=== PATIENT | male | born 1975 | race Caucasian/White ===

== ENCOUNTER 2018-06-21 14:46 | Inpatient (IN) | payer BC, OTHER ==
[~2018-06-21] VITALS: Ht 185.4 cm; Wt 110.7 kg
[~2018-06-21 14:46] MED LIST: SUCCINYLCHOLINE 200 MG/10 ML VIAL. ONE
[2018-06-21] MEDS ORDERED: LABETALOL 20 MG/4 ML DISP.SYRIN. IVP ONE (15:15)
[2018-06-21 15:18] LABS: BASO # 0.1 x10^3/uL (0.0-0.2); BASO % 0 % (0-3); EOS % 0 % (0-3); HEMATOCRIT 49.1 % (39.0-53.0); HEMOGLOBIN 16.8 g/dL (13.0-17.5); LYMPH # 1.2 x10^3/uL (1.0-4.8); LYMPH % 6 % (24-48); MEAN CORPUSCULAR HEMOGLOBIN 31 pg (25-35); MEAN CORPUSCULAR HGB CONC 34 g/dL (31-37); MEAN CORPUSCULAR VOLUME 90 fL (79-100); MONO # 1.2 x10^3/uL (0.0-1.1); MONO % 6 % (0-9); NEUT # 17.2 x10^3uL (1.8-7.7); NEUT % 87 % (31-73); PLATELET COUNT 249 x10^3/uL (140-400); RED BLOOD COUNT 5.43 x10^6/uL (4.30-5.70); RED CELL DISTRIBUTION WIDTH 13.8 % (11.5-14.5); WHITE BLOOD COUNT 19.7 x10^3/uL (4.0-11.0)
[2018-06-21 15:26] LABS: CALCIUM 9.6 mg/dL (8.5-10.1); CREATININE 1.2 mg/dL (0.7-1.3); GFR 65.5; POTASSIUM 3.4 mmol/L (3.5-5.1)
[2018-06-21 15:27] LABS: PROTHROMBIN TIME PATIENT 14.3 SEC (11.7-14.0)
[2018-06-21 15:32] LABS: ALBUMIN 4.7 g/dL (3.4-5.0); ALBUMIN/GLOBULIN RATIO 1.2 (1.0-1.7); MAGNESIUM 1.7 mg/dL (1.8-2.4); TOTAL BILIRUBIN 0.8 mg/dL (0.2-1.0); TOTAL PROTEIN 8.7 g/dL (6.4-8.2)
--- NOTE | 2018-06-21 15:53 | RAD ---
CT HEAD WO CONTRAST Indication: HEADACHE, HTN TODAY
PREVIOUS Exposure: One or more of the following individualized dose reduction techniques were utilized for this examination: 1. Automated exposure control 2. Adjustment of the mA and/or kV according to patient size 3. Use of iterative reconstruction technique. Comparison: None FINDINGS: No evidence of acute intracranial hemorrhage, mass effect, midline shift or abnormal extra-axial fluid collection. Ventricles and sulci are symmetric. Mobley-white matter distinction is intact. Partially visualized sinuses are clear. No acute skull abnormality. Orbits appear unremarkable. IMPRESSION: No evidence of acute intracranial hemorrhage or infarction. Electronically signed by: Bert Simms MD (06/21/2018 3:49 PM) [facility]
[2018-06-21 16:00] LABS: % BANDS 2 % (0-9); % LYMPHS 3 % (24-48); % MONOS 6 % (0-10); % SEGS 89 % (35-66)
[2018-06-21] MEDS ORDERED: METOPROLOL TARTRATE 5 MG/5 ML VIAL. IVP ONE (16:00)
[2018-06-21 16:11] LABS: PLT ESTIMATE ADEQUATE (ADEQUATE)
--- NOTE | 2018-06-21 16:14 | RAD ---
CHEST AP ONLY History: Short of breath Comparison: None. Heart size is not enlarged. No evidence of pneumothorax, pleural effusion or consolidating infiltrate. IMPRESSION: No acute infiltrate. Electronically signed by: Bert Simms MD (06/21/2018 4:11 PM) [facility]
[2018-06-21] MEDS ORDERED: MAGNESIUM SULFATE 2GM 50 ML IV ONE (16:30)
[2018-06-21] MEDS ORDERED: IV NORMAL SALINE 500ML BAG 500 ML IV ONE (16:30)
--- NOTE | 2018-06-21 16:56 | PHYS DOC ---
Past Medical History Past Medical History: No Pertinent History Past Surgical History: Other Additional Past Surgical Histo: VASECTOMY Additional Information: CHEWS DAILY Alcohol Use: Occasionally Drug Use: None Adult General Chief Complaint Chief Complaint: DIZZY/LIGHT HEADED HPI HPI Patient is a 43 year old male presented to the ER today with sudden onset of dizziness and blurry vision after drank something at work around 1pm. Patient later admitted of drinking methamphetamine. Patient denied any headache, no fever. He denied any chest pain, no shortness of air, no slurry speech, no focal weakness or numbness. Patient has no previous history of elevated blood pressure. Patient is currently not on any medication, no recent travel or operation. Review of Systems Review of Systems Constitutional: Denies fever or chills [] Eyes: Denies change in visual acuity, redness, or eye pain [] HENT: Denies nasal congestion or sore throat [] Respiratory: Denies cough or shortness of breath [] Cardiovascular: No additional information not addressed in HPI [] GI: Denies abdominal pain, nausea, vomiting, bloody stools or diarrhea [] : Denies dysuria or hematuria [] Musculoskeletal: Denies back pain or joint pain [] Integument: Denies rash or skin lesions [] Neurologic: Denies headache, focal weakness or sensory changes. Positive for blurry vision and dizziness. Endocrine: Denies polyuria or polydipsia [] All other systems were reviewed and found to be within normal limits, except as documented in this note. Current Medications Current Medications Current Medications Medications (Trade) Dose Ordered Sig/Facundo Start Time Stop Time Status Last Admin Dose Admin Acetaminophen (Tylenol Supp) 650 mg 1X ONCE 06/21/18 17:45 06/21/18 17:46 DC 06/21/18 17:57 650 MG Ceftriaxone Sodium (Rocephin) 2 gm 1X ONCE 06/21/18 17:30 06/21/18 17:31 DC 06/21/18 17:39 2 GM Etomidate (Amidate) 20 mg STK-MED ONCE 06/21/18 17:28 06/21/18 17:29 DC Labetalol HCl (Normodyne Iv Push) 20 mg 1X ONCE 06/21/18 15:15 06/21/18 15:18 DC 06/21/18 15:30 20 MG Lorazepam (Ativan) 2 mg 1X ONCE 06/21/18 17:15 06/21/18 17:16 DC Magnesium Sulfate 50 ml @ 25 mls/hr 1X ONCE 06/21/18 16:30 06/21/18 18:29 DC 06/21/18 16:41 25 MLS/HR Metoprolol Tartrate (Lopressor Vial) 5 mg 1X ONCE 06/21/18 16:00 06/21/18 16:01 DC 06/21/18 16:05 5 MG Midazolam HCl (Versed) 5 mg STK-MED ONCE 06/21/18 17:47 06/21/18 17:48 DC Ondansetron HCl (Zofran) 4 mg PRN Q8HRS PRN 06/21/18 17:45 06/22/18 17:44 Propofol 50 ml @ As Directed STK-MED ONCE 06/21/18 17:26 06/21/18 17:27 DC Propofol (Diprivan) 200 mg 1X ONCE 06/21/18 17:30 06/21/18 17:31 DC Sodium Chloride 1,000 ml @ 100 mls/hr Q10H 06/21/18 17:38 06/22/18 17:37 Succinylcholine Chloride (Anectine) 200 mg STK-MED ONCE 06/21/18 17:13 06/21/18 17:14 DC Vancomycin HCl (Vanco Per Pharmacy) 1 each PRN DAILY PRN 06/21/18 17:30 Ziprasidone (Geodon Im) 20 mg 1X ONCE 06/21/18 17:00 06/21/18 17:01 DC 06/21/18 17:03 20 MG Allergies Allergies Allergies Coded Allergies Type Severity Reaction Last Updated Verified Penicillins Allergy Intermediate 06/21/18 Yes diphenhydramine Allergy Intermediate 06/21/18 Yes Physical Exam Physical Exam Constitutional: Well developed, well nourished, no acute distress, non-toxic appearance. [] HENT: Normocephalic, atraumatic, bilateral external ears normal, oropharynx moist, no oral exudates, nose normal. [] Eyes: PERRLA, EOMI, conjunctiva normal, no discharge. [] Neck: Normal range of motion, no tenderness, supple, no stridor. [] Cardiovascular:Heart rate regular rhythm, no murmur [] Lungs & Thorax: Bilateral breath sounds clear to auscultation [] Abdomen: Bowel sounds normal, soft, no tenderness, no masses, no pulsatile masses. [] Skin: Warm, dry, no erythema, no rash. [] Back: No tenderness, no CVA tenderness. [] Extremities: No tenderness, no cyanosis, no clubbing, ROM intact, no edema. [] Neurologic: Alert and oriented X 3, normal motor function, normal sensory function, no focal deficits noted. Patient can sit up in bed without any problem. No focal neurologic deficit. NIHSS was scored as zero. Psychologic: Affect normal, judgement normal, mood normal. [] Current Patient Data Vital Signs Vital Signs Date Time Temp Pulse Resp B/P (MAP) Pulse Ox O2 Delivery O2 Flow Rate FiO2 06/21/18 17:45 162 16 93 06/21/18 17:20 Ventilator 06/21/18 17:00 106.0 106.0 06/21/18 16:05 173/93 Lab Values Laboratory Tests Test 06/21/18 15:09 06/21/18 16:30 06/21/18 17:22 White Blood Count 19.7 x10^3/uL (4.0-11.0) H Red Blood Count 5.43 x10^6/uL (4.30-5.70) Hemoglobin 16.8 g/dL (13.0-17.5) Hematocrit 49.1 % (39.0-53.0) Mean Corpuscular Volume 90 fL (79-100) Mean Corpuscular Hemoglobin 31 pg (25-35) Mean Corpuscular Hemoglobin Concent 34 g/dL (31-37) Red Cell Distribution Width 13.8 % (11.5-14.5) Platelet Count 249 x10^3/uL (140-400) Neutrophils (%) (Auto) 87 % (31-73) H Lymphocytes (%) (Auto) 6 % (24-48) L Monocytes (%) (Auto) 6 % (0-9) Eosinophils (%) (Auto) 0 % (0-3) Basophils (%) (Auto) 0 % (0-3) Neutrophils # (Auto) 17.2 x10^3uL (1.8-7.7) H Lymphocytes # (Auto) 1.2 x10^3/uL (1.0-4.8) Monocytes # (Auto) 1.2 x10^3/uL (0.0-1.1) H Eosinophils # (Auto) 0.0 x10^3/uL (0.0-0.7) Basophils # (Auto) 0.1 x10^3/uL (0.0-0.2) Segmented Neutrophils % 89 % (35-66) H Band Neutrophils % 2 % (0-9) Lymphocytes % 3 % (24-48) L Monocytes % 6 % (0-10) Platelet Estimate Adequate (ADEQUATE) Prothrombin Time 14.3 SEC (11.7-14.0) H Prothrombin Time INR 1.1 (0.8-1.1) PTT 27 SEC (24-38) Sodium Level 138 mmol/L (136-145) Potassium Level 3.4 mmol/L (3.5-5.1) L Chloride Level 99 mmol/L (98-107) Carbon Dioxide Level 24 mmol/L (21-32) Anion Gap 15 (6-14) H Blood Urea Nitrogen 11 mg/dL (8-26) Creatinine 1.2 mg/dL (0.7-1.3) Estimated GFR (Cockcroft-Gault) 65.5 BUN/Creatinine Ratio 9 (6-20) Glucose Level 185 mg/dL (70-99) H Calcium Level 9.6 mg/dL (8.5-10.1) Magnesium Level 1.7 mg/dL (1.8-2.4) L Total Bilirubin 0.8 mg/dL (0.2-1.0) Aspartate Amino Transferase (AST) 20 U/L (15-37) Alanine Aminotransferase (ALT) 49 U/L (16-63) Alkaline Phosphatase 83 U/L (46-116) Troponin I Quantitative 0.080 ng/mL (0.000-0.055) FX-[id number]-Type Natriuretic Peptide 460 pg/mL (0-124) H Total Protein 8.7 g/dL (6.4-8.2) H Albumin 4.7 g/dL (3.4-5.0) Albumin/Globulin Ratio 1.2 (1.0-1.7) Salicylates Level < 2.8 mg/dL (2.8-20.0) L Salicylate Last Dose Date Unk Salicylate Last Dose Time Unk Acetaminophen Level < 2 mcg/ml (10-30) L Acetaminophen Last Dose Date Unk Acetaminophen Last Dose Time Unk Ethyl Alcohol Level < 10 mg/dL (0-10) Lactic Acid Level 5.8 mmol/L (0.4-2.0) *H Urine Opiates Screen Neg (NEG) Urine Methadone Screen Neg (NEG) Urine Barbiturates Neg (NEG) Urine Phencyclidine Screen Neg (NEG) Urine Amphetamine/Methamphetamine Pos (NEG) Urine Benzodiazepines Screen Neg (NEG) Urine Cocaine Screen Neg (NEG) Urine Cannabinoids Screen Neg (NEG) Urine Ethyl Alcohol Neg (NEG) Laboratory Tests 06/21/18 15:09 Laboratory Tests 06/21/18 15:09 EKG EKG EKG WAS DONE AT 1458,RATE OF 121, SINUS TACHYCARDIA, NO STEMI. [] Radiology/Procedures Radiology/Procedures [][address] [address] IMAGING REPORT Signed PATIENT: BERT SORENSON ACCOUNT: [id number] : 1975 LOCATION: ER AGE: 43 SEX: M EXAM STATUS: REG ER ORD. PHYSICIAN: BRIAN POST DO REASON: SOA PROCEDURE: CHEST AP ONLY CHEST AP ONLY History: Short of breath Comparison: None. Heart size is not enlarged. No evidence of pneumothorax, pleural effusion or consolidating infiltrate. IMPRESSION: No acute infiltrate. Electronically signed by: Bert Simms MD (06/21/2018 4:11 PM) [facility] DICTATED and SIGNED BY: BERT SIMMS MD DATE: 06/21/[address] [address] IMAGING REPORT Signed PATIENT: BERT SORENSON ACCOUNT: [id number] : 1975 LOCATION: ER AGE: 43 SEX: M EXAM STATUS: REG ER ORD. PHYSICIAN: BRIAN POST DO REASON: headache, htn PROCEDURE: CT HEAD WO CONTRAST CT HEAD WO CONTRAST Indication: HEADACHE, HTN TODAY
PREVIOUS Exposure: One or more of the following individualized dose reduction techniques were utilized for this examination: 1. Automated exposure control 2. Adjustment of the mA and/or kV according to patient size 3. Use of iterative reconstruction technique. Comparison: None FINDINGS: No evidence of acute intracranial hemorrhage, mass effect, midline shift or abnormal extra-axial fluid collection. Ventricles and sulci are symmetric. Mobley-white matter distinction is intact. Partially visualized sinuses are clear. No acute skull abnormality. Orbits appear unremarkable. IMPRESSION: No evidence of acute intracranial hemorrhage or infarction. Electronically signed by: Bert Simms MD (06/21/2018 3:49 PM) [facility] DICTATED and SIGNED BY: BERT SIMMS MD DATE: 06/21/18 9227 Course & Med Decision Making Course & Med Decision Making Pertinent Labs and Imaging studies reviewed. (See chart for details) While in the room, patient became hallucinated, felt hot flush, he started twisting his extremities while he was still awake and talking. He was given several doses of ativan iv but continues to hallucinating, convulsing. He was moved to trauma base, patient never lost his consciousness, he attempted to pull off medical devices, not following command. He managed to bit his tongue. He was sweating, pale. A decision was made to intubate patient to protect his airway and stopping the convulsion. Patient was intubated by rapid sequence intubation. His lactate was high, associated with leukocytosis and confusion. He was given rocephin and vancomycin empirically to treat for infectious encephalitis. Patient was admitted to ICU. Dragon Disclaimer Dragon Disclaimer This electronic medical record was generated, in whole or in part, using a voice recognition dictation system. Departure Departure Impression: Primary Impression: Hypertension Additional Impressions: Encephalopathy acute Substance abuse Disposition: ADMITTED INPATIENT Admitting Physician: Krista Park Condition: STABLE Referrals: KEKE KHOURY MD (PCP) Intubation Procedure Intubation Procedure Intub Indication: Acute hallucination, combative, seizuring Consent: Unable to give consent due to emergent nature. Medications Used: see nursing note Procedure: The patient was placed in the appropriate position. Intubation was performed [CORD VISUALIZATION METHOD] [ET # 8] endotracheal tube, MAC 4 BLADE. [ET SECURE at 24 at lip]. Initial confirmation of placement included bilateral breath sounds, tube fogging, adequate chest rise, adequate pulse oximetry reading. A chest x-ray to verify correct placement of the tube showed appropriate tube position. The patient tolerated the procedure well. Complications: none. Problem Qualifiers BRIAN POST DO Jun 21, 2018 16:56
[2018-06-21] MEDS ORDERED: ZIPRASIDONE IM 20 MG VIAL. IM ONE (17:00)
[2018-06-21] MEDS ORDERED: SUCCINYLCHOLINE 200 MG/10 ML VIAL. ONE (17:13)
[2018-06-21] MEDS ORDERED: PROPOFOL 20 ML IV ONE (17:24)
[2018-06-21] MEDS ORDERED: PROPOFOL 50 ML IV ONE (17:26)
[2018-06-21] MEDS ORDERED: ETOMIDATE 20 MG/10 ML VIAL. IV ONE (17:28)
[2018-06-21] MEDS ORDERED: cefTRIAXone IV Push 1 GM VIAL. IVP ONE (17:30)
[2018-06-21] MEDS ORDERED: IV NORMAL SALINE 1000ML BAG 1,000 ML IV ONE ×2 (17:30)
[2018-06-21] MEDS ORDERED: VANCOMYCIN PER PHARMACY MC PRN (17:30)
[2018-06-21] MEDS ORDERED: PROPOFOL 10 MG/ML (20ML) VIAL. IV ONE (17:30)
[2018-06-21 17:34] LABS: BARBITURATES NEG (NEG); BENZODIAZEPINES NEG (NEG); CANNABINOIDS NEG (NEG); COCAINE NEG (NEG); METHADONE NEG (NEG); OPIATES NEG (NEG); PHENCYCLIDINE NEG (NEG)
[2018-06-21 17:39] LABS: ACETAMIN < 2 mcg/ml (10-30); ETHANOL < 10 mg/dL (0-10); SALIC < 2.8 mg/dL (2.8-20.0)
[2018-06-21 17:39] LABS: AMPHETAMINE/METHAMPHETAMINE POS (NEG)
[2018-06-21] MEDS ORDERED: ONDANSETRON PF 4 MG/2 ML VIAL. IV PRN (17:45)
[2018-06-21] MEDS ORDERED: ACETAMINOPHEN 650 MG SUPP.RECT. PR ONE (17:45)
[2018-06-21] MEDS ORDERED: MIDAZOLAM HCL/PF 5 MG/5 ML VIAL. ONE (17:47)
[2018-06-21] MEDS ORDERED: MIDAZOLAM 100mg/100ml NS BAG 100 ML IV ONE (18:00)
[2018-06-21] MEDS ORDERED: VANCOMYCIN 2 GM in IV NORMAL SALINE 500ML BAG 500 ML IV ONE (18:00)
[2018-06-21 18:04] LABS: BASE EXCESS ABG -6 mmol/L (-3-3); CORRECTED PCO2 ABG 51 mmHg; CORRECTED PH ABG 7.24; CORRECTED PO2 ABG 248 mmHg; HCO3 ABG 20 mmol/L (21-28); SAT O2 ABG 99 % (92-99)
[2018-06-21 18:05] LABS: FIO2 ABG 100; PCO2 ABG 51 mmHg (35-46); PO2 ABG 248 mmHg (75-108)
[2018-06-21] MEDS ORDERED: PROPOFOL 100 ML IV ONE (18:07)
[2018-06-21] MEDS ORDERED: PROPOFOL 10 MG/ML (100ML) VIAL. IV ONE (18:10)
[2018-06-21] MEDS ORDERED: ROCURONIUM 50 MG/5 ML VIAL. ONE (18:11)
[2018-06-21 19:00] VITALS: BP 116/71
--- NOTE | 2018-06-21 19:00 | NUR ---
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 unable to complete ancillary questions d/t pt being intubated/sedated and family has left for the night. temperature coming down smoothly with cooling blanket, down to 98.5 rectally at this time. pt moving frequently in bed, attempting to sit up so sedation increased to keep him comfortable and in sync with ventilator. OG inserted without difficulty and placed to LIS at this time. VSS, pt now resting in bed without issues. will continue to closely monitor.
[2018-06-21] MEDS: IV NORMAL SALINE 1000ML BAG 1,000 ML IV SCH (19:32)
--- NOTE | 2018-06-21 19:45 | PDOC1 ---
History and Physical Date of Admission Date of Admission DATE: 06/21/18 TIME: 19:41 Identification/Chief Complaint Chief Complaint shaky, confused Source Source: Caregiver, Chart review History of Present Illness History of Present Illness Mr. Nelson, is a 43 year old male presented to the ER today with sudden onset of dizziness and blurry vision after drank something at work around 1pm. Patient later admitted of drinking methamphetamine. Patient denied any headache , no fever. He denied any chest pain, no shortness of air, no slurry speech, no focal weakness or numbness. Patient has no previous history of elevated blood pressure. Patient is currently not on any medication, no recent travel or operation. intubated in the ER when he became confused, combative and bit his tongue Past Medical History Cardiovascular: No pertinent hx Pulmonary: No pertinent hx GI: No pertinent hx Family History Family History: Other Social History Smoke: # pack years (chew) ALCOHOL: rare Drugs: None Current Problem List Problem List Problems Medical Problems: (1) Encephalopathy acute Status: Acute (2) Hypertension Status: Acute (3) Substance abuse Status: Acute Current Medications Current Medications Current Medications Labetalol HCl (Normodyne Iv Push) 20 mg 1X ONCE IVP Last administered on at 15:30; Start 06/21/18 at 15:15; Stop 06/21/18 at 15:18; Status DC Metoprolol Tartrate (Lopressor Vial) 5 mg 1X ONCE IVP Last administered on at 16:05; Start 06/21/18 at 16:00; Stop 06/21/18 at 16:01; Status DC Lorazepam (Ativan) 1 mg 1X ONCE IV Last administered on 06/21/18at 16:04; Start 06/21/18 at 16:00; Stop 06/21/18 at 16:01; Status DC Sodium Chloride 500 ml @ 500 mls/hr 1X ONCE IV Last administered on at 17:03; Start 06/21/18 at 16:30; Stop 06/21/18 at 17:29; Status DC Magnesium Sulfate 50 ml @ 25 mls/hr 1X ONCE IV Last administered on 06/21/18at 16:41; Start 06/21/18 at 16:30; Stop 06/21/18 at 18:29; Status DC Lorazepam (Ativan) 2 mg 1X ONCE IV Last administered on 06/21/18at 16:41; Start 06/21/18 at 16:30; Stop 06/21/18 at 16:31; Status DC Ziprasidone (Geodon Im) 20 mg 1X ONCE IM Last administered on 06/21/18at 17:03 ; Start 06/21/18 at 17:00; Stop 06/21/18 at 17:01; Status DC Lorazepam (Ativan) 2 mg 1X ONCE IV ; Start 06/21/18 at 17:15; Stop 06/21/18 at 17:16; Status DC Succinylcholine Chloride (Anectine) 200 mg STK-MED ONCE .ROUTE ; Start 06/21/18 at 17:13; Stop 06/21/18 at 17:14; Status DC Propofol (Diprivan) 200 mg 1X ONCE IV ; Start 06/21/18 at 17:30; Stop 06/21/18 at 17:31; Status DC Ceftriaxone Sodium (Rocephin) 2 gm 1X ONCE IVP Last administered on 06/21/18at 17:39; Start 06/21/18 at 17:30; Stop 06/21/18 at 17:31; Status DC Sodium Chloride 1,000 ml @ 1,000 mls/hr 1X ONCE IV Last administered on at 17:32; Start 06/21/18 at 17:30; Stop 06/21/18 at 18:29; Status DC Propofol 20 ml @ As Directed STK-MED ONCE IV ; Start 06/21/18 at 17:24; Stop at 17:25; Status DC Propofol 50 ml @ As Directed STK-MED ONCE IV ; Start 06/21/18 at 17:26; Stop at 17:27; Status DC Etomidate (Amidate) 20 mg STK-MED ONCE IV ; Start 06/21/18 at 17:28; Stop at 17:29; Status DC Sodium Chloride 1,000 ml @ 1,000 mls/hr 1X ONCE IV Last administered on at 19:31; Start 06/21/18 at 17:30; Stop 06/21/18 at 18:29; Status DC Vancomycin HCl (Vanco Per Pharmacy) 1 each PRN DAILY PRN MC SEE COMMENTS; Start 06/21/18 at 17:30 Vancomycin HCl 2 gm/Sodium Chloride 500 ml @ 250 mls/hr 1X ONCE IV Last administered on 06/21/18at 19:31; Start 06/21/18 at 18:00; Stop 06/21/18 at 19:59 Ondansetron HCl (Zofran) 4 mg PRN Q8HRS PRN IV NAUSEA/VOMITING; Start 06/21/18 at 17:45; Stop 06/22/18 at 17:44 Sodium Chloride 1,000 ml @ 100 mls/hr Q10H IV Last administered on 06/21/18at 19:32; Start 06/21/18 at 17:38; Stop 06/22/18 at 17:37 Acetaminophen (Tylenol Supp) 650 mg 1X ONCE DC Last administered on 06/21/18at 17:57; Start 06/21/18 at 17:45; Stop 06/21/18 at 17:46; Status DC Midazolam HCl 100 ml @ 1 mls/hr 1X ONCE IV Last administered on 06/21/18at 17: 57; Start 06/21/18 at 18:00; Stop 06/25/18 at 21:59 Midazolam HCl (Versed) 5 mg STK-MED ONCE .ROUTE ; Start 06/21/18 at 17:47; Stop 06/21/18 at 17:48; Status DC Propofol 100 ml @ As Directed STK-MED ONCE IV ; Start 06/21/18 at 18:07; Stop 06/21/18 at 18:08; Status DC Rocuronium [place] (Zemuron) 50 mg STK-MED ONCE .ROUTE ; Start 06/21/18 at 18:11 ; Stop 06/21/18 at 18:12; Status DC Allergies Allergies: Coded Allergies: Penicillins (Verified Allergy, Intermediate, 06/21/18) diphenhydramine (Verified Allergy, Intermediate, 06/21/18) ROS Review of System unable, intubated, had felt well until this Afternoon per family Physical Exam General: mild distress (sedated) HEENT: Atraumatic, PERRLA Lungs: Clear to auscultation, Other (vent ) Heart: S1S2, no murmurs Extremities: No cyanosis, No edema, Normal pulses Skin: No rashes, No significant lesion, Other (arm tattoos) Neuro: Normal tone Psych/Mental Status: Other (sedasted) Vitals Vitals Vital Signs Date Time Temp Pulse Resp B/P (MAP) Pulse Ox O2 Delivery O2 Flow Rate FiO2 06/21/18 18:00 154 16 100 06/21/18 17:20 Ventilator 06/21/18 17:00 106.0 106.0 06/21/18 16:05 173/93 Labs Labs Laboratory Tests Test 06/21/18 15:09 06/21/18 16:30 06/21/18 17:22 06/21/18 17:55 White Blood Count 19.7 x10^3/uL (4.0-11.0) Red Blood Count 5.43 x10^6/uL (4.30-5.70) Hemoglobin 16.8 g/dL (13.0-17.5) Hematocrit 49.1 % (39.0-53.0) Mean Corpuscular Volume 90 fL (79-100) Mean Corpuscular Hemoglobin 31 pg (25-35) Mean Corpuscular Hemoglobin Concent 34 g/dL (31-37) Red Cell Distribution Width 13.8 % (11.5-14.5) Platelet Count 249 x10^3/uL (140-400) Neutrophils (%) (Auto) 87 % (31-73) Lymphocytes (%) (Auto) 6 % (24-48) Monocytes (%) (Auto) 6 % (0-9) Eosinophils (%) (Auto) 0 % (0-3) Basophils (%) (Auto) 0 % (0-3) Neutrophils # (Auto) 17.2 x10^3uL (1.8-7.7) Lymphocytes # (Auto) 1.2 x10^3/uL (1.0-4.8) Monocytes # (Auto) 1.2 x10^3/uL (0.0-1.1) Eosinophils # (Auto) 0.0 x10^3/uL (0.0-0.7) Basophils # (Auto) 0.1 x10^3/uL (0.0-0.2) Segmented Neutrophils % 89 % (35-66) Band Neutrophils % 2 % (0-9) Lymphocytes % 3 % (24-48) Monocytes % 6 % (0-10) Platelet Estimate Adequate (ADEQUATE) Prothrombin Time 14.3 SEC (11.7-14.0) Prothromb Time International Ratio 1.1 (0.8-1.1) Activated Partial Thromboplast Time 27 SEC (24-38) Sodium Level 138 mmol/L (136-145) Potassium Level 3.4 mmol/L (3.5-5.1) Chloride Level 99 mmol/L (98-107) Carbon Dioxide Level 24 mmol/L (21-32) Anion Gap 15 (6-14) Blood Urea Nitrogen 11 mg/dL (8-26) Creatinine 1.2 mg/dL (0.7-1.3) Estimated GFR (Cockcroft-Gault) 65.5 BUN/Creatinine Ratio 9 (6-20) Glucose Level 185 mg/dL (70-99) Calcium Level 9.6 mg/dL (8.5-10.1) Magnesium Level 1.7 mg/dL (1.8-2.4) Total Bilirubin 0.8 mg/dL (0.2-1.0) Aspartate Amino Transf (AST/SGOT) 20 U/L (15-37) Alanine Aminotransferase (ALT/SGPT) 49 U/L (16-63) Alkaline Phosphatase 83 U/L (46-116) Troponin I Quantitative 0.080 ng/mL (0.000-0.055) SQ-Rnp-U-Type Natriuretic Peptide 460 pg/mL (0-124) Total Protein 8.7 g/dL (6.4-8.2) Albumin 4.7 g/dL (3.4-5.0) Albumin/Globulin Ratio 1.2 (1.0-1.7) Salicylates Level < 2.8 mg/dL (2.8-20.0) Salicylate Last Dose Date Unk Salicylate Last Dose Time Unk Acetaminophen Level < 2 mcg/ml (10-30) Acetaminophen Last Dose Date Unk Acetaminophen Last Dose Time Unk Ethyl Alcohol Level < 10 mg/dL (0-10) Lactic Acid Level 5.8 mmol/L (0.4-2.0) Urine Opiates Screen Neg (NEG) Urine Methadone Screen Neg (NEG) Urine Barbiturates Neg (NEG) Urine Phencyclidine Screen Neg (NEG) Urine Amphetamine/Methamphetamine Pos (NEG) Urine Benzodiazepines Screen Neg (NEG) Urine Cocaine Screen Neg (NEG) Urine Cannabinoids Screen Neg (NEG) Urine Ethyl Alcohol Neg (NEG) O2 Saturation 99 % (92-99) Arterial Blood pH 7.24 (7.35-7.45) Arterial Blood pH (Temp corrected) 7.24 Arterial Blood pCO2 at Patient Temp 51 mmHg (35-46) Arterial Blood pCO2 (Temp correct) 51 mmHg Arterial Blood pO2 at Patient Temp 248 mmHg (75-108) Arterial Blood pO2 (Temp corrected) 248 mmHg Arterial Blood HCO3 20 mmol/L (21-28) Arterial Blood Base Excess -6 mmol/L (-3-3) FiO2 100 Laboratory Tests Test 06/21/18 15:09 06/21/18 16:30 06/21/18 17:22 06/21/18 17:55 White Blood Count 19.7 x10^3/uL (4.0-11.0) Red Blood Count 5.43 x10^6/uL (4.30-5.70) Hemoglobin 16.8 g/dL (13.0-17.5) Hematocrit 49.1 % (39.0-53.0) Mean Corpuscular Volume 90 fL (79-100) Mean Corpuscular Hemoglobin 31 pg (25-35) Mean Corpuscular Hemoglobin Concent 34 g/dL (31-37) Red Cell Distribution Width 13.8 % (11.5-14.5) Platelet Count 249 x10^3/uL (140-400) Neutrophils (%) (Auto) 87 % (31-73) Lymphocytes (%) (Auto) 6 % (24-48) Monocytes (%) (Auto) 6 % (0-9) Eosinophils (%) (Auto) 0 % (0-3) Basophils (%) (Auto) 0 % (0-3) Neutrophils # (Auto) 17.2 x10^3uL (1.8-7.7) Lymphocytes # (Auto) 1.2 x10^3/uL (1.0-4.8) Monocytes # (Auto) 1.2 x10^3/uL (0.0-1.1) Eosinophils # (Auto) 0.0 x10^3/uL (0.0-0.7) Basophils # (Auto) 0.1 x10^3/uL (0.0-0.2) Segmented Neutrophils % 89 % (35-66) Band Neutrophils % 2 % (0-9) Lymphocytes % 3 % (24-48) Monocytes % 6 % (0-10) Platelet Estimate Adequate (ADEQUATE) Prothrombin Time 14.3 SEC (11.7-14.0) Prothromb Time International Ratio 1.1 (0.8-1.1) Activated Partial Thromboplast Time 27 SEC (24-38) Sodium Level 138 mmol/L (136-145) Potassium Level 3.4 mmol/L (3.5-5.1) Chloride Level 99 mmol/L (98-107) Carbon Dioxide Level 24 mmol/L (21-32) Anion Gap 15 (6-14) Blood Urea Nitrogen 11 mg/dL (8-26) Creatinine 1.2 mg/dL (0.7-1.3) Estimated GFR (Cockcroft-Gault) 65.5 BUN/Creatinine Ratio 9 (6-20) Glucose Level 185 mg/dL (70-99) Calcium Level 9.6 mg/dL (8.5-10.1) Magnesium Level 1.7 mg/dL (1.8-2.4) Total Bilirubin 0.8 mg/dL (0.2-1.0) Aspartate Amino Transf (AST/SGOT) 20 U/L (15-37) Alanine Aminotransferase (ALT/SGPT) 49 U/L (16-63) Alkaline Phosphatase 83 U/L (46-116) Troponin I Quantitative 0.080 ng/mL (0.000-0.055) YQ-[id number]-T-Type Natriuretic Peptide 460 pg/mL (0-124) Total Protein 8.7 g/dL (6.4-8.2) Albumin 4.7 g/dL (3.4-5.0) Albumin/Globulin Ratio 1.2 (1.0-1.7) Salicylates Level < 2.8 mg/dL (2.8-20.0) Salicylate Last Dose Date Unk Salicylate Last Dose Time Unk Acetaminophen Level < 2 mcg/ml (10-30) Acetaminophen Last Dose Date Unk Acetaminophen Last Dose Time Unk Ethyl Alcohol Level < 10 mg/dL (0-10) Lactic Acid Level 5.8 mmol/L (0.4-2.0) Urine Opiates Screen Neg (NEG) Urine Methadone Screen Neg (NEG) Urine Barbiturates Neg (NEG) Urine Phencyclidine Screen Neg (NEG) Urine Amphetamine/Methamphetamine Pos (NEG) Urine Benzodiazepines Screen Neg (NEG) Urine Cocaine Screen Neg (NEG) Urine Cannabinoids Screen Neg (NEG) Urine Ethyl Alcohol Neg (NEG) O2 Saturation 99 % (92-99) Arterial Blood pH 7.24 (7.35-7.45) Arterial Blood pH (Temp corrected) 7.24 Arterial Blood pCO2 at Patient Temp 51 mmHg (35-46) Arterial Blood pCO2 (Temp correct) 51 mmHg Arterial Blood pO2 at Patient Temp 248 mmHg (75-108) Arterial Blood pO2 (Temp corrected) 248 mmHg Arterial Blood HCO3 20 mmol/L (21-28) Arterial Blood Base Excess -6 mmol/L (-3-3) FiO2 100 VTE Prophylaxis Ordered VTE Prophylaxis Devices: No VTE Pharmacological Prophylaxi: Yes Assessment/Plan Assessment/Plan acute methamphetamine toxicity, overdose hyperthermia accelerated hypertension tachycardia, SIRS from [facility] ICU admit, intubate, sedate, propofol, SUNNI HERRERA MD Jun 21, 2018 19:44
[2018-06-21 20:00] VITALS: BP 114/73
[2018-06-21 20:02] LABS: BASE EXCESS ABG -6 mmol/L (-3-3); HCO3 ABG 19 mmol/L (21-28); PCO2 ABG 37 mmHg (35-46); PO2 ABG 151 mmHg (75-108); SAT O2 ABG 99 % (92-99)
[2018-06-21 20:23] LABS: FIO2 ABG 80
--- NOTE | 2018-06-21 20:30 | RAD ---
Single view chest 06/21/2017 CLINICAL INDICATION: Postintubation. COMPARISON: Chest 06/21/2017 FINDINGS: Placement of endotracheal tube well above the level the dayron. Scattered areas of mild atelectasis in both lungs. No pleural effusion, pneumothorax or focal consolidation. Moderate gaseous distention is partially visualized. IMPRESSION: 1. Endotracheal tube, as detailed. 2. Moderate gaseous distention. Clinical correlation recommended. Electronically signed by: Edson Hicks MD (06/21/2018 8:28 PM) [facility]
--- NOTE | 2018-06-21 20:36 | NUR ---
Pharmacy Vancomycin Dosing Note S:Consulted to monitor and dose vancomycin started 06/21/18. O:ABY SORENSON is a 43 year old M with ENCEPHALOPATHY, FEVER, LEUKOCYTOSIS . Height: 6 feet, 1 inches Weight: 113.4 kg [place] Body Weight: 79.90 Adjusted Body Weight: 93.30 Dosing Weight: Actual Other Antibiotics: rocephin x1 LABS: Last BUN: 11 Last Creatinine: 1.2 Creatinine Clearance: 106 mL/min Last WBC: 19.7 Last Procalcitonin: Tmax (past 24 hours): 106 Microbiology: - Last dose given 06/21/18 at 1931 Vancomycin Dosing: Loading Dose: 2000 mg x1 Dosing Weight: Actual Target Trough: 15-20 A: Based on: weight and renal function P: 1. Begin Vancomycin 1750 mg IV q12h 2. Follow up Trough level on 06/23/18 at 0730 3. Pharmacy will continue to monitor, follow and adjust therapy as needed. Ruth Carias Micah, 06/21/18 [id number]
[2018-06-21 21:00] VITALS: BP 112/73
[2018-06-21] MEDS ORDERED: MIDAZOLAM 100mg/100ml NS BAG 100 ML IV PRN (21:00)
[2018-06-21] MEDS: ENOXAPARIN 40 MG/0.4 ML SYRINGE. SQ SCH (21:05)
[2018-06-21 22:00] VITALS: BP 109/73
[2018-06-21] MEDS: PROPOFOL 100 ML IV PRN (22:45)
[2018-06-21 23:00] VITALS: BP 113/80
[2018-06-22] VITALS (18 sets, daily range): BP systolic 59–159; BP diastolic 71–90
[2018-06-22] MEDS: IV NORMAL SALINE 1000ML BAG 1,000 ML IV SCH ×2 (03:03→13:38)
[2018-06-22] MEDS: PROPOFOL 100 ML IV PRN (03:04)
--- NOTE | 2018-06-22 07:15 | EKG ---
[facility] [address] [place] [address] Test Date: 2018-06-21 Test Time: 14:58:08 Pat Name: ABY SORENSON Department: Room: 110 1 Gender: M Driver/Sales Workers: JUSTUS : 1975 Requested By: BRIAN POST Order Number: [id number] Reading MD: Margarito Davenport Measurements Intervals [place] Rate: 121 P: -81 CO: 148 QRS: 53 QRSD: 100 T: 26 QT: 304 QTc: 434 Interpretive Statements SINUS TACHYCARDIA Electronically Signed On 06-30-2018 10:40:35 [employer]SC[employer]IST by Margarito Davenport
[2018-06-22] MEDS ORDERED: VANCOMYCIN 1.75 GM in IV NORMAL SALINE 500ML BAG 500 ML IV SCH (08:00)
[2018-06-22 08:50] LABS: HEMATOCRIT 45.6 % (39.0-53.0); HEMOGLOBIN 15.4 g/dL (13.0-17.5); RED BLOOD COUNT 5.04 x10^6/uL (4.30-5.70); RED CELL DISTRIBUTION WIDTH 13.8 % (11.5-14.5); WHITE BLOOD COUNT 12.2 x10^3/uL (4.0-11.0)
[2018-06-22 08:59] LABS: BASE EXCESS ABG -4 mmol/L (-3-3); HCO3 ABG 20 mmol/L (21-28); PCO2 ABG 34 mmHg (35-46); PO2 ABG 98 mmHg (75-108); SAT O2 ABG 97 % (92-99)
[2018-06-22 09:49] LABS: BASE EXCESS ABG -4 mmol/L (-3-3); HCO3 ABG 20 mmol/L (21-28); PCO2 ABG 32 mmHg (35-46); PO2 ABG 103 mmHg (75-108); SAT O2 ABG 98 % (92-99)
[2018-06-22 09:50] LABS: FIO2 ABG 40
[2018-06-22 09:52] LABS: FIO2 ABG 40
[2018-06-22 09:58] LABS: CALCIUM 8.8 mg/dL (8.5-10.1); CREATININE 1.2 mg/dL (0.7-1.3); GFR 65.5; MAGNESIUM 2.5 mg/dL (1.8-2.4); POTASSIUM 3.6 mmol/L (3.5-5.1)
--- NOTE | 2018-06-22 11:21 | RAD ---
EXAM: Chest, single view. HISTORY: Respiratory failure. COMPARISON: 06/21/2018 FINDINGS: A frontal view of the chest is obtained. There is an endotracheal tube within the mid trachea. There is a nasogastric tube within the stomach. There is stable left retrograde opacity. There is no significant pleural effusion or pneumothorax. The heart is normal in size. IMPRESSION: 1. Stable left lower lobe atelectasis or infiltrate. 2. Endotracheal tube and nasogastric tube in expected position. Electronically signed by: Fatmata Diggs MD (06/22/2018 11:18 AM) [place] [id number]
--- NOTE | 2018-06-22 11:34 | CONS ---
DATE OF CONSULTATION: PULMONARY CONSULTATION ATTENDING PHYSICIAN: Dr. Park. REASON FOR CONSULTATION: Respiratory failure and drug intoxication. HISTORY OF PRESENT ILLNESS: The patient is a 43-year-old male who was brought into the Emergency Room with sudden onset of dizziness and blurry vision after he reportedly had meth mixed with Gatorade. The patient had no chest pain, no shortness of breath, no slurring of speech, no focal weakness. He was noted to have a fever of 106 on arrival and he has been afebrile since last night. His chest x-ray did not reveal any definite consolidation. He is now currently awake, following commands on a CPAP trial. His ABGs were reviewed, initial was 7.24 pH, pCO2 of 51 and a pO2 of 214 on 100% FIO2, and latest one on the CPAP trial is a pH of 7.38, pCO2 of 34 and pO2 of 98. I have spoken to the patient's who states that he has never done meth before. He does chew tobacco. His blood pressure was also high with systolic of 212 and a diastolic 111 on admission. PAST MEDICAL HISTORY: No chronic medical illnesses. PAST SURGICAL HISTORY: No recent surgeries. SOCIAL HISTORY: Recent meth intake and chew tobacco. Rare alcohol. ALLERGIES: PENICILLIN, DIPHENHYDRAMINE. MEDICATIONS: All reviewed as listed in the MRAD including vancomycin and Rocephin. REVIEW OF SYSTEMS: Unable to obtain as he is on the ventilator. PHYSICAL EXAMINATION: VITAL SIGNS: His blood pressure is more stable, is 131/80, afebrile, pulse ox 98%. HEENT: Sclerae nonicteric. NECK: Supple. LUNGS: Clear. CARDIOVASCULAR: Regular rate and rhythm. ABDOMEN: Soft. EXTREMITIES: With no pitting edema. LABORATORY AND DIAGNOSTIC DATA: Labs are reviewed. White cell count 12.2, hemoglobin 15.4 and platelets are 181. BUN and creatinine 11 and 1.2. Lactic acid was 5.8, now 1.5. IMPRESSION: 1. Acute hypercapnic respiratory failure secondary to acute intoxication of meth/toxic encephalopathy. 2. Acute toxic encephalopathy with abnormal behavior related to meth overdose. 3. Hypertensive urgency related to meth overdose. 4. Hyperthermia, likely related to meth. No definite infection on the chest x-ray. Fever is now resolved. 5. Metabolic and respiratory acidosis, resolved. RECOMMENDATIONS: 1. The patient is clinically doing well. He is awake following commands on a CPAP trial. ABGs are adequate. We will proceed with extubation. 2. Lovenox for DVT prophylaxis. 3. P.r.n. bronchodilators. 4. Antibiotics can be discontinued and follow ID recommendations. 5. Discussed with family. Discussed with RT and RN. Critical care time 33 minutes. JOANNA LEWIS MD DR: ARVIND/nicho JOB#: [id number] / [id number] WILBERT
--- NOTE | 2018-06-22 14:07 | PDOC2 ---
NEUROLOGY CONSULT Date of Admission Date of Admission DATE: 06/22/18 TIME: 13:49 Reason for Consult Reason for Consult: IMPRESSION: Hypertensive emergency, BP 224/128 mmHg. Hypertensive encephalopathy. Toxic encephalopathy (amphetamine).. Respiratory failure. Pulmonary infiltrate? Blurred vision. Dizziness. Lactic acidosis. Leukocytosis. HTN. Amphetamine positive. Obesity. RECOMMENDATIONS/PLAN: BP control. HCT showed no ICH and SAH. Lab: see orders. Treat medical diseases. Discussed with his and bedside in ICU on 06/22/18. HISTORY OF THE PRESENT ILLNESS: 43-y-old male patient with Hx of HTN and obesity had episodes of accelerated BP in the past at young age. He has not had treatment for HTN for many years, and he last checked his BP was about 2-3 years ago. He had some drinking with methamphetamine in it on 06/21/18 and he then suddenly had mental status changes, blurred vision, dizziness, light headiness to be brought to the ER of [facility]. His BP was high. Past Medical History Cardiovascular: HTN. Pulmonary: No pertinent hx GI: No pertinent hx Family History Non contributory. PAST SURGERY HISTORY: No major surgery recently. ALLERGY: Unknown MEDICATIONS: Refer to MAR SOCIAL HISTORY: Lives with his at home. Smoke: 1-2 pack years (chew)Lives in assisted. He drinks occasionally. Amphetamine positive this time. REVIEW OF SYSTEMS: Constitutional:Obesity. Head: No recent traumatic brain or head injury. Skin: No edema, or rash. Ear: No infection. Eyes: No vision loss or color blindness. Nose: No bleeding or purulent discharges. Hearing: No hearing decrease. Neck: No injury. Cardiac: HTN. Pulmonary: No COPD. GI: No GI ulcer, GI bleeding. Urinary/genital: No dysuria, incontinence, urinary retention. Endocrinologic: Obesity. Skeletomuscular: No muscular atrophy, deformity. Neurological: see HP. Psychiatric: Tobacco use. Otherwise, not [id number] review of systems. PHYSICAL EXAMINATION: General appearance is in subacute distress. HEENT: Normocephalic and nontraumatic. Eyes, nose, ears, and throat are unremarkable. Neck is supple. No lymphadenopathy. No crepitus. Cardiovascular: S1, S2, regular rate and rhythm. Pulmonary: Clear to auscultation bilaterally. Abdomen: Bowel sounds are positive. Abdomen is soft, nontender, and nondistended. Extremities: No rash, lesions, or edema. No restriction of range of motion NEUROLOGICAL EXAMINATION: Awake. On room air now. Oriented to time, place and person. PERRL. EOMI. CN: no focal findings. Muscle tone: within normal. Muscle strength: 5 DTR: 2+ Plantar reflex: Flexor response bilaterally Gait: not examined in bed. Sensory exam: no abnormal findings. No cerebellar signs elicited. F-T-N test fine. Current Medications Current Medications Current Medications Labetalol HCl (Normodyne Iv Push) 20 mg 1X ONCE IVP Last administered on 15:30; Start 06/21/18 at 15:15; Stop 06/21/18 at 15:18; Status DC Metoprolol Tartrate (Lopressor Vial) 5 mg 1X ONCE IVP Last administered on 16:05; Start 06/21/18 at 16:00; Stop 06/21/18 at 16:01; Status DC Lorazepam (Ativan) 1 mg 1X ONCE IV Last administered on 06/21/18 16:04; Start 06/21/18 at 16:00; Stop 06/21/18 at 16:01; Status DC Sodium Chloride 500 ml @ 500 mls/hr 1X ONCE IV Last administered on 17:03; Start 06/21/18 at 16:30; Stop 06/21/18 at 17:29; Status DC Magnesium Sulfate 50 ml @ 25 mls/hr 1X ONCE IV Last administered on 06/21/18 16:41; Start 06/21/18 at 16:30; Stop 06/21/18 at 18:29; Status DC Lorazepam (Ativan) 2 mg 1X ONCE IV Last administered on 06/21/18 16:41; Start 06/21/18 at 16:30; Stop 06/21/18 at 16:31; Status DC Ziprasidone (Geodon Im) 20 mg 1X ONCE IM Last administered on 06/21/18 17:03 ; Start 06/21/18 at 17:00; Stop 06/21/18 at 17:01; Status DC Lorazepam (Ativan) 2 mg 1X ONCE IV ; Start 06/21/18 at 17:15; Stop 06/21/18 at 17:16; Status DC Succinylcholine Chloride (Anectine) 200 mg STK-MED ONCE .ROUTE ; Start 06/21/18 at 17:13; Stop 06/21/18 at 17:14; Status DC Propofol (Diprivan) 200 mg 1X ONCE IV ; Start 06/21/18 at 17:30; Stop 06/21/18 at 17:31; Status DC Ceftriaxone Sodium (Rocephin) 2 gm 1X ONCE IVP Last administered on 06/21/18at 17:39; Start 06/21/18 at 17:30; Stop 06/21/18 at 17:31; Status DC Sodium Chloride 1,000 ml @ 1,000 mls/hr 1X ONCE IV Last administered on at 17:32; Start 06/21/18 at 17:30; Stop 06/21/18 at 18:29; Status DC Propofol 20 ml @ As Directed STK-MED ONCE IV ; Start 06/21/18 at 17:24; Stop at 17:25; Status DC Propofol 50 ml @ As Directed STK-MED ONCE IV ; Start 06/21/18 at 17:26; Stop at 17:27; Status DC Etomidate (Amidate) 20 mg STK-MED ONCE IV ; Start 06/21/18 at 17:28; Stop at 17:29; Status DC Sodium Chloride 1,000 ml @ 1,000 mls/hr 1X ONCE IV Last administered on at 19:31; Start 06/21/18 at 17:30; Stop 06/21/18 at 18:29; Status DC Vancomycin HCl (Vanco Per Pharmacy) 1 each PRN DAILY PRN MC SEE COMMENTS Last administered on 06/21/18at 20:33; Start 06/21/18 at 17:30 Vancomycin HCl 2 gm/Sodium Chloride 500 ml @ 250 mls/hr 1X ONCE IV Last administered on 06/21/18at 19:31; Start 06/21/18 at 18:00; Stop 06/21/18 at 19:59 ; Status DC Ondansetron HCl (Zofran) 4 mg PRN Q8HRS PRN IV NAUSEA/VOMITING; Start 06/21/18 at 17:45; Stop 06/22/18 at 17:44 Sodium Chloride 1,000 ml @ 100 mls/hr Q10H IV Last administered on 06/22/18 03:03; Start 06/21/18 at 17:38; Stop 06/22/18 at 17:37 Acetaminophen (Tylenol Supp) 650 mg 1X ONCE MI Last administered on 06/21/18at 17:57; Start 06/21/18 at 17:45; Stop 06/21/18 at 17:46; Status DC Midazolam HCl 100 ml @ 1 mls/hr 1X ONCE IV Last administered on 06/21/18at 17: 57; Start 06/21/18 at 18:00; Stop 06/25/18 at 21:59 Midazolam HCl (Versed) 5 mg STK-MED ONCE .ROUTE ; Start 06/21/18 at 17:47; Stop 06/21/18 at 17:48; Status DC Propofol 100 ml @ As Directed STK-MED ONCE IV ; Start 06/21/18 at 18:07; Stop 06/21/18 at 18:08; Status DC Rocuronium [place] (Zemuron) 50 mg STK-MED ONCE .ROUTE ; Start 06/21/18 at 18:11 ; Stop 06/21/18 at 18:12; Status DC Enoxaparin Sodium (Lovenox Per Pharmacy Prophylaxis Dosing) 1 each PRN DAILY PRN MC SEE COMMENTS; Start 06/21/18 at 19:45 Enoxaparin Sodium (Lovenox 40mg Syringe) 40 mg QHS SQ Last administered on 06/21at 21:05; Start 06/21/18 at 21:00 Vancomycin HCl 1.75 gm/Sodium Chloride 500 ml @ 250 mls/hr Q12H IV Last administered on 06/22/18at 09:39; Start 06/22/18 at 08:00 Vancomycin HCl (Vancomycin Trough Level) 1 each 1X ONCE MC ; Start 06/23/18 at 07:30; Stop 06/23/18 at 07:31 Midazolam HCl 100 ml @ 5 mls/hr CONT PRN IV SEE I/O RECORD; Start 06/21/18 at 21:00 Propofol 100 ml @ 0 mls/hr CONT PRN IV SEE I/O RECORD Last administered on 06/22at 03:04; Start 06/21/18 at 21:00 Propofol (Diprivan) 1,000 mg STK-MED ONCE IV ; Start 06/21/18 at 18:10; Stop at 09:01; Status DC Allergies Allergies: Allergies Coded Allergies Type Severity Reaction Last Updated Verified Penicillins Allergy Intermediate 06/21/18 Yes diphenhydramine Allergy Intermediate 06/21/18 Yes ROS Review of System The patient denies any associated fevers, chills, headache, ear pain, rhinorrhea , sore throat, stiff neck, productive cough, chest pain, shortness of breath, back or flank pain, abdominal pain, nausea, vomiting, diarrhea, constipation, dysuria, rash, numbness, weakness, tingling, incontinence, difficulty ambulating, or diaphoresis. Physical Exam Physical Exam General: Well developed, well nourished, no acute distress, well appearing HEENT: Pupils equally round and reactive to light, EOMI, no discharge, normal conjunctiva Neck: Supple, no nuchal rigidity, no JVD, trachea midline, no tenderness Cardiac: RRR, no murmurs, no gallops, no rubs Chest/Lungs: CTAB, no wheeze, no rhonchi, no crackles Abdomen: soft, non-distended, no guarding, no peritoneal signs, non-tender Back: No tenderness Extremities: no edema, pulses intact, non-tender,capillary refill <3 sec bilateral upper and lower extremities, Neuro: Alert and oriented x 4, no focal deficits, normal speech Vitals Vitals: Vital Signs Date Time Temp Pulse Resp B/P (MAP) Pulse Ox O2 Delivery O2 Flow Rate FiO2 06/22/18 13:00 104 17 144/80 (101) 96 Room Air 06/22/18 11:00 98.2 2.0 98.2 Labs Labs Laboratory Tests Test 06/21/18 15:09 06/21/18 16:30 06/21/18 17:22 06/21/18 17:55 White Blood Count 19.7 x10^3/uL (4.0-11.0) Red Blood Count 5.43 x10^6/uL (4.30-5.70) Hemoglobin 16.8 g/dL (13.0-17.5) Hematocrit 49.1 % (39.0-53.0) Mean Corpuscular Volume 90 fL (79-100) Mean Corpuscular Hemoglobin 31 pg (25-35) Mean Corpuscular Hemoglobin Concent 34 g/dL (31-37) Red Cell Distribution Width 13.8 % (11.5-14.5) Platelet Count 249 x10^3/uL (140-400) Neutrophils (%) (Auto) 87 % (31-73) Lymphocytes (%) (Auto) 6 % (24-48) Monocytes (%) (Auto) 6 % (0-9) Eosinophils (%) (Auto) 0 % (0-3) Basophils (%) (Auto) 0 % (0-3) Neutrophils # (Auto) 17.2 x10^3uL (1.8-7.7) Lymphocytes # (Auto) 1.2 x10^3/uL (1.0-4.8) Monocytes # (Auto) 1.2 x10^3/uL (0.0-1.1) Eosinophils # (Auto) 0.0 x10^3/uL (0.0-0.7) Basophils # (Auto) 0.1 x10^3/uL (0.0-0.2) Segmented Neutrophils % 89 % (35-66) Band Neutrophils % 2 % (0-9) Lymphocytes % 3 % (24-48) Monocytes % 6 % (0-10) Platelet Estimate Adequate (ADEQUATE) Prothrombin Time 14.3 SEC (11.7-14.0) Prothromb Time International Ratio 1.1 (0.8-1.1) Activated Partial Thromboplast Time 27 SEC (24-38) Sodium Level 138 mmol/L (136-145) Potassium Level 3.4 mmol/L (3.5-5.1) Chloride Level 99 mmol/L (98-107) Carbon Dioxide Level 24 mmol/L (21-32) Anion Gap 15 (6-14) Blood Urea Nitrogen 11 mg/dL (8-26) Creatinine 1.2 mg/dL (0.7-1.3) Estimated GFR (Cockcroft-Gault) 65.5 BUN/Creatinine Ratio 9 (6-20) Glucose Level 185 mg/dL (70-99) Calcium Level 9.6 mg/dL (8.5-10.1) Magnesium Level 1.7 mg/dL (1.8-2.4) Total Bilirubin 0.8 mg/dL (0.2-1.0) Aspartate Amino Transf (AST/SGOT) 20 U/L (15-37) Alanine Aminotransferase (ALT/SGPT) 49 U/L (16-63) Alkaline Phosphatase 83 U/L (46-116) Troponin I Quantitative 0.080 ng/mL (0.000-0.055) KD-Ngw-B-Type Natriuretic Peptide 460 pg/mL (0-124) Total Protein 8.7 g/dL (6.4-8.2) Albumin 4.7 g/dL (3.4-5.0) Albumin/Globulin Ratio 1.2 (1.0-1.7) Salicylates Level < 2.8 mg/dL (2.8-20.0) Salicylate Last Dose Date Unk Salicylate Last Dose Time Unk Acetaminophen Level < 2 mcg/ml (10-30) Acetaminophen Last Dose Date Unk Acetaminophen Last Dose Time Unk Ethyl Alcohol Level < 10 mg/dL (0-10) Lactic Acid Level 5.8 mmol/L (0.4-2.0) Urine Opiates Screen Neg (NEG) Urine Methadone Screen Neg (NEG) Urine Barbiturates Neg (NEG) Urine Phencyclidine Screen Neg (NEG) Urine Amphetamine/Methamphetamine Pos (NEG) Urine Benzodiazepines Screen Neg (NEG) Urine Cocaine Screen Neg (NEG) Urine Cannabinoids Screen Neg (NEG) Urine Ethyl Alcohol Neg (NEG) O2 Saturation 99 % (92-99) Arterial Blood pH 7.24 (7.35-7.45) Arterial Blood pH (Temp corrected) 7.24 Arterial Blood pCO2 at Patient Temp 51 mmHg (35-46) Arterial Blood pCO2 (Temp correct) 51 mmHg Arterial Blood pO2 at Patient Temp 248 mmHg (75-108) Arterial Blood pO2 (Temp corrected) 248 mmHg Arterial Blood HCO3 20 mmol/L (21-28) Arterial Blood Base Excess -6 mmol/L (-3-3) FiO2 100 Test 06/21/18 19:56 06/21/18 20:40 06/22/18 08:00 06/22/18 08:26 O2 Saturation 99 % (92-99) 97 % (92-99) Arterial Blood pH 7.33 (7.35-7.45) 7.38 (7.35-7.45) Arterial Blood pCO2 at Patient Temp 37 mmHg (35-46) 34 mmHg (35-46) Arterial Blood pO2 at Patient Temp 151 mmHg (75-108) 98 mmHg (75-108) Arterial Blood HCO3 19 mmol/L (21-28) 20 mmol/L (21-28) Arterial Blood Base Excess -6 mmol/L (-3-3) -4 mmol/L (-3-3) FiO2 80 40 Lactic Acid Level 1.5 mmol/L (0.4-2.0) White Blood Count 12.2 x10^3/uL (4.0-11.0) Red Blood Count 5.04 x10^6/uL (4.30-5.70) Hemoglobin 15.4 g/dL (13.0-17.5) Hematocrit 45.6 % (39.0-53.0) Mean Corpuscular Volume 90 fL (79-100) Mean Corpuscular Hemoglobin 31 pg (25-35) Mean Corpuscular Hemoglobin Concent 34 g/dL (31-37) Red Cell Distribution Width 13.8 % (11.5-14.5) Platelet Count 181 x10^3/uL (140-400) Sodium Level 144 mmol/L (136-145) Potassium Level 3.6 mmol/L (3.5-5.1) Chloride Level 106 mmol/L (98-107) Carbon Dioxide Level 23 mmol/L (21-32) Anion Gap 15 (6-14) Blood Urea Nitrogen 10 mg/dL (8-26) Creatinine 1.2 mg/dL (0.7-1.3) Estimated GFR (Cockcroft-Gault) 65.5 Glucose Level 122 mg/dL (70-99) Calcium Level 8.8 mg/dL (8.5-10.1) Magnesium Level 2.5 mg/dL (1.8-2.4) Test 06/22/18 09:45 O2 Saturation 98 % (92-99) Arterial Blood pH 7.40 (7.35-7.45) Arterial Blood pCO2 at Patient Temp 32 mmHg (35-46) Arterial Blood pO2 at Patient Temp 103 mmHg (75-108) Arterial Blood HCO3 20 mmol/L (21-28) Arterial Blood Base Excess -4 mmol/L (-3-3) FiO2 40 Laboratory Tests Test 06/21/18 15:09 06/21/18 16:30 06/21/18 17:22 06/21/18 17:55 White Blood Count 19.7 x10^3/uL (4.0-11.0) Red Blood Count 5.43 x10^6/uL (4.30-5.70) Hemoglobin 16.8 g/dL (13.0-17.5) Hematocrit 49.1 % (39.0-53.0) Mean Corpuscular Volume 90 fL (79-100) Mean Corpuscular Hemoglobin 31 pg (25-35) Mean Corpuscular Hemoglobin Concent 34 g/dL (31-37) Red Cell Distribution Width 13.8 % (11.5-14.5) Platelet Count 249 x10^3/uL (140-400) Neutrophils (%) (Auto) 87 % (31-73) Lymphocytes (%) (Auto) 6 % (24-48) Monocytes (%) (Auto) 6 % (0-9) Eosinophils (%) (Auto) 0 % (0-3) Basophils (%) (Auto) 0 % (0-3) Neutrophils # (Auto) 17.2 x10^3uL (1.8-7.7) Lymphocytes # (Auto) 1.2 x10^3/uL (1.0-4.8) Monocytes # (Auto) 1.2 x10^3/uL (0.0-1.1) Eosinophils # (Auto) 0.0 x10^3/uL (0.0-0.7) Basophils # (Auto) 0.1 x10^3/uL (0.0-0.2) Segmented Neutrophils % 89 % (35-66) Band Neutrophils % 2 % (0-9) Lymphocytes % 3 % (24-48) Monocytes % 6 % (0-10) Platelet Estimate Adequate (ADEQUATE) Prothrombin Time 14.3 SEC (11.7-14.0) Prothromb Time International Ratio 1.1 (0.8-1.1) Activated Partial Thromboplast Time 27 SEC (24-38) Sodium Level 138 mmol/L (136-145) Potassium Level 3.4 mmol/L (3.5-5.1) Chloride Level 99 mmol/L (98-107) Carbon Dioxide Level 24 mmol/L (21-32) Anion Gap 15 (6-14) Blood Urea Nitrogen 11 mg/dL (8-26) Creatinine 1.2 mg/dL (0.7-1.3) Estimated GFR (Cockcroft-Gault) 65.5 BUN/Creatinine Ratio 9 (6-20) Glucose Level 185 mg/dL (70-99) Calcium Level 9.6 mg/dL (8.5-10.1) Magnesium Level 1.7 mg/dL (1.8-2.4) Total Bilirubin 0.8 mg/dL (0.2-1.0) Aspartate Amino Transf (AST/SGOT) 20 U/L (15-37) Alanine Aminotransferase (ALT/SGPT) 49 U/L (16-63) Alkaline Phosphatase 83 U/L (46-116) Troponin I Quantitative 0.080 ng/mL (0.000-0.055) KW-Xlo-L-Type Natriuretic Peptide 460 pg/mL (0-124) Total Protein 8.7 g/dL (6.4-8.2) Albumin 4.7 g/dL (3.4-5.0) Albumin/Globulin Ratio 1.2 (1.0-1.7) Salicylates Level < 2.8 mg/dL (2.8-20.0) Salicylate Last Dose Date Unk Salicylate Last Dose Time Unk Acetaminophen Level < 2 mcg/ml (10-30) Acetaminophen Last Dose Date Unk Acetaminophen Last Dose Time Unk Ethyl Alcohol Level < 10 mg/dL (0-10) Lactic Acid Level 5.8 mmol/L (0.4-2.0) Urine Opiates Screen Neg (NEG) Urine Methadone Screen Neg (NEG) Urine Barbiturates Neg (NEG) Urine Phencyclidine Screen Neg (NEG) Urine Amphetamine/Methamphetamine Pos (NEG) Urine Benzodiazepines Screen Neg (NEG) Urine Cocaine Screen Neg (NEG) Urine Cannabinoids Screen Neg (NEG) Urine Ethyl Alcohol Neg (NEG) O2 Saturation 99 % (92-99) Arterial Blood pH 7.24 (7.35-7.45) Arterial Blood pH (Temp corrected) 7.24 Arterial Blood pCO2 at Patient Temp 51 mmHg (35-46) Arterial Blood pCO2 (Temp correct) 51 mmHg Arterial Blood pO2 at Patient Temp 248 mmHg (75-108) Arterial Blood pO2 (Temp corrected) 248 mmHg Arterial Blood HCO3 20 mmol/L (21-28) Arterial Blood Base Excess -6 mmol/L (-3-3) FiO2 100 Test 06/21/18 19:56 06/21/18 20:40 06/22/18 08:00 06/22/18 08:26 O2 Saturation 99 % (92-99) 97 % (92-99) Arterial Blood pH 7.33 (7.35-7.45) 7.38 (7.35-7.45) Arterial Blood pCO2 at Patient Temp 37 mmHg (35-46) 34 mmHg (35-46) Arterial Blood pO2 at Patient Temp 151 mmHg (75-108) 98 mmHg (75-108) Arterial Blood HCO3 19 mmol/L (21-28) 20 mmol/L (21-28) Arterial Blood Base Excess -6 mmol/L (-3-3) -4 mmol/L (-3-3) FiO2 80 40 Lactic Acid Level 1.5 mmol/L (0.4-2.0) White Blood Count 12.2 x10^3/uL (4.0-11.0) Red Blood Count 5.04 x10^6/uL (4.30-5.70) Hemoglobin 15.4 g/dL (13.0-17.5) Hematocrit 45.6 % (39.0-53.0) Mean Corpuscular Volume 90 fL (79-100) Mean Corpuscular Hemoglobin 31 pg (25-35) Mean Corpuscular Hemoglobin Concent 34 g/dL (31-37) Red Cell Distribution Width 13.8 % (11.5-14.5) Platelet Count 181 x10^3/uL (140-400) Sodium Level 144 mmol/L (136-145) Potassium Level 3.6 mmol/L (3.5-5.1) Chloride Level 106 mmol/L (98-107) Carbon Dioxide Level 23 mmol/L (21-32) Anion Gap 15 (6-14) Blood Urea Nitrogen 10 mg/dL (8-26) Creatinine 1.2 mg/dL (0.7-1.3) Estimated GFR (Cockcroft-Gault) 65.5 Glucose Level 122 mg/dL (70-99) Calcium Level 8.8 mg/dL (8.5-10.1) Magnesium Level 2.5 mg/dL (1.8-2.4) Test 06/22/18 09:45 O2 Saturation 98 % (92-99) Arterial Blood pH 7.40 (7.35-7.45) Arterial Blood pCO2 at Patient Temp 32 mmHg (35-46) Arterial Blood pO2 at Patient Temp 103 mmHg (75-108) Arterial Blood HCO3 20 mmol/L (21-28) Arterial Blood Base Excess -4 mmol/L (-3-3) FiO2 40 KIMMY CALDERÓN MD Jun 22, 2018 14:06
--- NOTE | 2018-06-22 14:28 | PDOC ---
PROGRESS NOTES Chief Complaint Chief Complaint Acute hypercapnic respiratory failure secondary to acute intoxication of meth/ toxic encephalopathy. Acute toxic encephalopathy with abnormal behavior related to meth overdose. Hypertensive urgency related to meth overdose. Leukocytosis most likely reactive due to susbstance abuse and acute illness mildly elevation of troponin which is most likely demand ischemia nstemi type 2 severe dehydration secondary to substance abuse. 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 further recommendations abased on clinical course. Vitals Vitals Vital Signs Date Time Temp Pulse Resp B/P (MAP) Pulse Ox O2 Delivery O2 Flow Rate FiO2 06/22/18 13:00 104 17 144/80 (101) 96 Room Air 06/22/18 11:00 98.2 2.0 98.2 Physical Exam General: mild distress (sedated) Extremities: No cyanosis, No edema, Normal pulses Skin: No rashes, No significant lesion, Other (arm tattoos) Labs LABS Laboratory Tests Test 06/21/18 15:09 06/21/18 16:30 06/21/18 17:22 06/21/18 17:55 White Blood Count 19.7 x10^3/uL (4.0-11.0) Red Blood Count 5.43 x10^6/uL (4.30-5.70) Hemoglobin 16.8 g/dL (13.0-17.5) Hematocrit 49.1 % (39.0-53.0) Mean Corpuscular Volume 90 fL (79-100) Mean Corpuscular Hemoglobin 31 pg (25-35) Mean Corpuscular Hemoglobin Concent 34 g/dL (31-37) Red Cell Distribution Width 13.8 % (11.5-14.5) Platelet Count 249 x10^3/uL (140-400) Neutrophils (%) (Auto) 87 % (31-73) Lymphocytes (%) (Auto) 6 % (24-48) Monocytes (%) (Auto) 6 % (0-9) Eosinophils (%) (Auto) 0 % (0-3) Basophils (%) (Auto) 0 % (0-3) Neutrophils # (Auto) 17.2 x10^3uL (1.8-7.7) Lymphocytes # (Auto) 1.2 x10^3/uL (1.0-4.8) Monocytes # (Auto) 1.2 x10^3/uL (0.0-1.1) Eosinophils # (Auto) 0.0 x10^3/uL (0.0-0.7) Basophils # (Auto) 0.1 x10^3/uL (0.0-0.2) Segmented Neutrophils % 89 % (35-66) Band Neutrophils % 2 % (0-9) Lymphocytes % 3 % (24-48) Monocytes % 6 % (0-10) Platelet Estimate Adequate (ADEQUATE) Prothrombin Time 14.3 SEC (11.7-14.0) Prothromb Time International Ratio 1.1 (0.8-1.1) Activated Partial Thromboplast Time 27 SEC (24-38) Sodium Level 138 mmol/L (136-145) Potassium Level 3.4 mmol/L (3.5-5.1) Chloride Level 99 mmol/L (98-107) Carbon Dioxide Level 24 mmol/L (21-32) Anion Gap 15 (6-14) Blood Urea Nitrogen 11 mg/dL (8-26) Creatinine 1.2 mg/dL (0.7-1.3) Estimated GFR (Cockcroft-Gault) 65.5 BUN/Creatinine Ratio 9 (6-20) Glucose Level 185 mg/dL (70-99) Calcium Level 9.6 mg/dL (8.5-10.1) Magnesium Level 1.7 mg/dL (1.8-2.4) Total Bilirubin 0.8 mg/dL (0.2-1.0) Aspartate Amino Transf (AST/SGOT) 20 U/L (15-37) Alanine Aminotransferase (ALT/SGPT) 49 U/L (16-63) Alkaline Phosphatase 83 U/L (46-116) Troponin I Quantitative 0.080 ng/mL (0.000-0.055) [id number]-Type Natriuretic Peptide 460 pg/mL (0-124) Total Protein 8.7 g/dL (6.4-8.2) Albumin 4.7 g/dL (3.4-5.0) Albumin/Globulin Ratio 1.2 (1.0-1.7) Salicylates Level < 2.8 mg/dL (2.8-20.0) Salicylate Last Dose Date Unk Salicylate Last Dose Time Unk Acetaminophen Level < 2 mcg/ml (10-30) Acetaminophen Last Dose Date Unk Acetaminophen Last Dose Time Unk Ethyl Alcohol Level < 10 mg/dL (0-10) Lactic Acid Level 5.8 mmol/L (0.4-2.0) Urine Opiates Screen Neg (NEG) Urine Methadone Screen Neg (NEG) Urine Barbiturates Neg (NEG) Urine Phencyclidine Screen Neg (NEG) Urine Amphetamine/Methamphetamine Pos (NEG) Urine Benzodiazepines Screen Neg (NEG) Urine Cocaine Screen Neg (NEG) Urine Cannabinoids Screen Neg (NEG) Urine Ethyl Alcohol Neg (NEG) O2 Saturation 99 % (92-99) Arterial Blood pH 7.24 (7.35-7.45) Arterial Blood pH (Temp corrected) 7.24 Arterial Blood pCO2 at Patient Temp 51 mmHg (35-46) Arterial Blood pCO2 (Temp correct) 51 mmHg Arterial Blood pO2 at Patient Temp 248 mmHg (75-108) Arterial Blood pO2 (Temp corrected) 248 mmHg Arterial Blood HCO3 20 mmol/L (21-28) Arterial Blood Base Excess -6 mmol/L (-3-3) FiO2 100 Test 06/21/18 18:30 06/21/18 19:56 06/21/18 20:40 06/22/18 08:00 Nasal Screen MRSA (PCR) Negative (Negative) O2 Saturation 99 % (92-99) 97 % (92-99) Arterial Blood pH 7.33 (7.35-7.45) 7.38 (7.35-7.45) Arterial Blood pCO2 at Patient Temp 37 mmHg (35-46) 34 mmHg (35-46) Arterial Blood pO2 at Patient Temp 151 mmHg (75-108) 98 mmHg (75-108) Arterial Blood HCO3 19 mmol/L (21-28) 20 mmol/L (21-28) Arterial Blood Base Excess -6 mmol/L (-3-3) -4 mmol/L (-3-3) FiO2 80 40 Lactic Acid Level 1.5 mmol/L (0.4-2.0) Test 06/22/18 08:26 06/22/18 09:45 White Blood Count 12.2 x10^3/uL (4.0-11.0) Red Blood Count 5.04 x10^6/uL (4.30-5.70) Hemoglobin 15.4 g/dL (13.0-17.5) Hematocrit 45.6 % (39.0-53.0) Mean Corpuscular Volume 90 fL (79-100) Mean Corpuscular Hemoglobin 31 pg (25-35) Mean Corpuscular Hemoglobin Concent 34 g/dL (31-37) Red Cell Distribution Width 13.8 % (11.5-14.5) Platelet Count 181 x10^3/uL (140-400) Sodium Level 144 mmol/L (136-145) Potassium Level 3.6 mmol/L (3.5-5.1) Chloride Level 106 mmol/L (98-107) Carbon Dioxide Level 23 mmol/L (21-32) Anion Gap 15 (6-14) Blood Urea Nitrogen 10 mg/dL (8-26) Creatinine 1.2 mg/dL (0.7-1.3) Estimated GFR (Cockcroft-Gault) 65.5 Glucose Level 122 mg/dL (70-99) Calcium Level 8.8 mg/dL (8.5-10.1) Magnesium Level 2.5 mg/dL (1.8-2.4) O2 Saturation 98 % (92-99) Arterial Blood pH 7.40 (7.35-7.45) Arterial Blood pCO2 at Patient Temp 32 mmHg (35-46) Arterial Blood pO2 at Patient Temp 103 mmHg (75-108) Arterial Blood HCO3 20 mmol/L (21-28) Arterial Blood Base Excess -4 mmol/L (-3-3) FiO2 40 Assessment and Plan Assessmemt and Plan Problems Medical Problems: (1) Encephalopathy acute Status: Acute (2) Hypertension Status: Acute (3) Substance abuse Status: Acute Comment Review of Relevant I have reviewed the following items richelle (where applicable) has been applied. Labs Laboratory Tests Test 06/21/18 15:09 06/21/18 16:30 06/21/18 17:22 06/21/18 17:55 White Blood Count 19.7 x10^3/uL (4.0-11.0) Red Blood Count 5.43 x10^6/uL (4.30-5.70) Hemoglobin 16.8 g/dL (13.0-17.5) Hematocrit 49.1 % (39.0-53.0) Mean Corpuscular Volume 90 fL (79-100) Mean Corpuscular Hemoglobin 31 pg (25-35) Mean Corpuscular Hemoglobin Concent 34 g/dL (31-37) Red Cell Distribution Width 13.8 % (11.5-14.5) Platelet Count 249 x10^3/uL (140-400) Neutrophils (%) (Auto) 87 % (31-73) Lymphocytes (%) (Auto) 6 % (24-48) Monocytes (%) (Auto) 6 % (0-9) Eosinophils (%) (Auto) 0 % (0-3) Basophils (%) (Auto) 0 % (0-3) Neutrophils # (Auto) 17.2 x10^3uL (1.8-7.7) Lymphocytes # (Auto) 1.2 x10^3/uL (1.0-4.8) Monocytes # (Auto) 1.2 x10^3/uL (0.0-1.1) Eosinophils # (Auto) 0.0 x10^3/uL (0.0-0.7) Basophils # (Auto) 0.1 x10^3/uL (0.0-0.2) Segmented Neutrophils % 89 % (35-66) Band Neutrophils % 2 % (0-9) Lymphocytes % 3 % (24-48) Monocytes % 6 % (0-10) Platelet Estimate Adequate (ADEQUATE) Prothrombin Time 14.3 SEC (11.7-14.0) Prothromb Time International Ratio 1.1 (0.8-1.1) Activated Partial Thromboplast Time 27 SEC (24-38) Sodium Level 138 mmol/L (136-145) Potassium Level 3.4 mmol/L (3.5-5.1) Chloride Level 99 mmol/L (98-107) Carbon Dioxide Level 24 mmol/L (21-32) Anion Gap 15 (6-14) Blood Urea Nitrogen 11 mg/dL (8-26) Creatinine 1.2 mg/dL (0.7-1.3) Estimated GFR (Cockcroft-Gault) 65.5 BUN/Creatinine Ratio 9 (6-20) Glucose Level 185 mg/dL (70-99) Calcium Level 9.6 mg/dL (8.5-10.1) Magnesium Level 1.7 mg/dL (1.8-2.4) Total Bilirubin 0.8 mg/dL (0.2-1.0) Aspartate Amino Transf (AST/SGOT) 20 U/L (15-37) Alanine Aminotransferase (ALT/SGPT) 49 U/L (16-63) Alkaline Phosphatase 83 U/L (46-116) Troponin I Quantitative 0.080 ng/mL (0.000-0.055) [id number]-Type Natriuretic Peptide 460 pg/mL (0-124) Total Protein 8.7 g/dL (6.4-8.2) Albumin 4.7 g/dL (3.4-5.0) Albumin/Globulin Ratio 1.2 (1.0-1.7) Salicylates Level < 2.8 mg/dL (2.8-20.0) Salicylate Last Dose Date Unk Salicylate Last Dose Time Unk Acetaminophen Level < 2 mcg/ml (10-30) Acetaminophen Last Dose Date Unk Acetaminophen Last Dose Time Unk Ethyl Alcohol Level < 10 mg/dL (0-10) Lactic Acid Level 5.8 mmol/L (0.4-2.0) Urine Opiates Screen Neg (NEG) Urine Methadone Screen Neg (NEG) Urine Barbiturates Neg (NEG) Urine Phencyclidine Screen Neg (NEG) Urine Amphetamine/Methamphetamine Pos (NEG) Urine Benzodiazepines Screen Neg (NEG) Urine Cocaine Screen Neg (NEG) Urine Cannabinoids Screen Neg (NEG) Urine Ethyl Alcohol Neg (NEG) O2 Saturation 99 % (92-99) Arterial Blood pH 7.24 (7.35-7.45) Arterial Blood pH (Temp corrected) 7.24 Arterial Blood pCO2 at Patient Temp 51 mmHg (35-46) Arterial Blood pCO2 (Temp correct) 51 mmHg Arterial Blood pO2 at Patient Temp 248 mmHg (75-108) Arterial Blood pO2 (Temp corrected) 248 mmHg Arterial Blood HCO3 20 mmol/L (21-28) Arterial Blood Base Excess -6 mmol/L (-3-3) FiO2 100 Test 06/21/18 18:30 06/21/18 19:56 06/21/18 20:40 06/22/18 08:00 Nasal Screen MRSA (PCR) Negative (Negative) O2 Saturation 99 % (92-99) 97 % (92-99) Arterial Blood pH 7.33 (7.35-7.45) 7.38 (7.35-7.45) Arterial Blood pCO2 at Patient Temp 37 mmHg (35-46) 34 mmHg (35-46) Arterial Blood pO2 at Patient Temp 151 mmHg (75-108) 98 mmHg (75-108) Arterial Blood HCO3 19 mmol/L (21-28) 20 mmol/L (21-28) Arterial Blood Base Excess -6 mmol/L (-3-3) -4 mmol/L (-3-3) FiO2 80 40 Lactic Acid Level 1.5 mmol/L (0.4-2.0) Test 06/22/18 08:26 06/22/18 09:45 White Blood Count 12.2 x10^3/uL (4.0-11.0) Red Blood Count 5.04 x10^6/uL (4.30-5.70) Hemoglobin 15.4 g/dL (13.0-17.5) Hematocrit 45.6 % (39.0-53.0) Mean Corpuscular Volume 90 fL (79-100) Mean Corpuscular Hemoglobin 31 pg (25-35) Mean Corpuscular Hemoglobin Concent 34 g/dL (31-37) Red Cell Distribution Width 13.8 % (11.5-14.5) Platelet Count 181 x10^3/uL (140-400) Sodium Level 144 mmol/L (136-145) Potassium Level 3.6 mmol/L (3.5-5.1) Chloride Level 106 mmol/L (98-107) Carbon Dioxide Level 23 mmol/L (21-32) Anion Gap 15 (6-14) Blood Urea Nitrogen 10 mg/dL (8-26) Creatinine 1.2 mg/dL (0.7-1.3) Estimated GFR (Cockcroft-Gault) 65.5 Glucose Level 122 mg/dL (70-99) Calcium Level 8.8 mg/dL (8.5-10.1) Magnesium Level 2.5 mg/dL (1.8-2.4) O2 Saturation 98 % (92-99) Arterial Blood pH 7.40 (7.35-7.45) Arterial Blood pCO2 at Patient Temp 32 mmHg (35-46) Arterial Blood pO2 at Patient Temp 103 mmHg (75-108) Arterial Blood HCO3 20 mmol/L (21-28) Arterial Blood Base Excess -4 mmol/L (-3-3) FiO2 40 Laboratory Tests Test 06/21/18 15:09 06/21/18 16:30 06/21/18 17:22 06/21/18 17:55 White Blood Count 19.7 x10^3/uL (4.0-11.0) Red Blood Count 5.43 x10^6/uL (4.30-5.70) Hemoglobin 16.8 g/dL (13.0-17.5) Hematocrit 49.1 % (39.0-53.0) Mean Corpuscular Volume 90 fL (79-100) Mean Corpuscular Hemoglobin 31 pg (25-35) Mean Corpuscular Hemoglobin Concent 34 g/dL (31-37) Red Cell Distribution Width 13.8 % (11.5-14.5) Platelet Count 249 x10^3/uL (140-400) Neutrophils (%) (Auto) 87 % (31-73) Lymphocytes (%) (Auto) 6 % (24-48) Monocytes (%) (Auto) 6 % (0-9) Eosinophils (%) (Auto) 0 % (0-3) Basophils (%) (Auto) 0 % (0-3) Neutrophils # (Auto) 17.2 x10^3uL (1.8-7.7) Lymphocytes # (Auto) 1.2 x10^3/uL (1.0-4.8) Monocytes # (Auto) 1.2 x10^3/uL (0.0-1.1) Eosinophils # (Auto) 0.0 x10^3/uL (0.0-0.7) Basophils # (Auto) 0.1 x10^3/uL (0.0-0.2) Segmented Neutrophils % 89 % (35-66) Band Neutrophils % 2 % (0-9) Lymphocytes % 3 % (24-48) Monocytes % 6 % (0-10) Platelet Estimate Adequate (ADEQUATE) Prothrombin Time 14.3 SEC (11.7-14.0) Prothromb Time International Ratio 1.1 (0.8-1.1) Activated Partial Thromboplast Time 27 SEC (24-38) Sodium Level 138 mmol/L (136-145) Potassium Level 3.4 mmol/L (3.5-5.1) Chloride Level 99 mmol/L (98-107) Carbon Dioxide Level 24 mmol/L (21-32) Anion Gap 15 (6-14) Blood Urea Nitrogen 11 mg/dL (8-26) Creatinine 1.2 mg/dL (0.7-1.3) Estimated GFR (Cockcroft-Gault) 65.5 BUN/Creatinine Ratio 9 (6-20) Glucose Level 185 mg/dL (70-99) Calcium Level 9.6 mg/dL (8.5-10.1) Magnesium Level 1.7 mg/dL (1.8-2.4) Total Bilirubin 0.8 mg/dL (0.2-1.0) Aspartate Amino Transf (AST/SGOT) 20 U/L (15-37) Alanine Aminotransferase (ALT/SGPT) 49 U/L (16-63) Alkaline Phosphatase 83 U/L (46-116) Troponin I Quantitative 0.080 ng/mL (0.000-0.055) [id number]-[id number]-Type Natriuretic Peptide 460 pg/mL (0-124) Total Protein 8.7 g/dL (6.4-8.2) Albumin 4.7 g/dL (3.4-5.0) Albumin/Globulin Ratio 1.2 (1.0-1.7) Salicylates Level < 2.8 mg/dL (2.8-20.0) Salicylate Last Dose Date Unk Salicylate Last Dose Time Unk Acetaminophen Level < 2 mcg/ml (10-30) Acetaminophen Last Dose Date Unk Acetaminophen Last Dose Time Unk Ethyl Alcohol Level < 10 mg/dL (0-10) Lactic Acid Level 5.8 mmol/L (0.4-2.0) Urine Opiates Screen Neg (NEG) Urine Methadone Screen Neg (NEG) Urine Barbiturates Neg (NEG) Urine Phencyclidine Screen Neg (NEG) Urine Amphetamine/Methamphetamine Pos (NEG) Urine Benzodiazepines Screen Neg (NEG) Urine Cocaine Screen Neg (NEG) Urine Cannabinoids Screen Neg (NEG) Urine Ethyl Alcohol Neg (NEG) O2 Saturation 99 % (92-99) Arterial Blood pH 7.24 (7.35-7.45) Arterial Blood pH (Temp corrected) 7.24 Arterial Blood pCO2 at Patient Temp 51 mmHg (35-46) Arterial Blood pCO2 (Temp correct) 51 mmHg Arterial Blood pO2 at Patient Temp 248 mmHg (75-108) Arterial Blood pO2 (Temp corrected) 248 mmHg Arterial Blood HCO3 20 mmol/L (21-28) Arterial Blood Base Excess -6 mmol/L (-3-3) FiO2 100 Test 06/21/18 18:30 06/21/18 19:56 06/21/18 20:40 06/22/18 08:00 Nasal Screen MRSA (PCR) Negative (Negative) O2 Saturation 99 % (92-99) 97 % (92-99) Arterial Blood pH 7.33 (7.35-7.45) 7.38 (7.35-7.45) Arterial Blood pCO2 at Patient Temp 37 mmHg (35-46) 34 mmHg (35-46) Arterial Blood pO2 at Patient Temp 151 mmHg (75-108) 98 mmHg (75-108) Arterial Blood HCO3 19 mmol/L (21-28) 20 mmol/L (21-28) Arterial Blood Base Excess -6 mmol/L (-3-3) -4 mmol/L (-3-3) FiO2 80 40 Lactic Acid Level 1.5 mmol/L (0.4-2.0) Test 06/22/18 08:26 06/22/18 09:45 White Blood Count 12.2 x10^3/uL (4.0-11.0) Red Blood Count 5.04 x10^6/uL (4.30-5.70) Hemoglobin 15.4 g/dL (13.0-17.5) Hematocrit 45.6 % (39.0-53.0) Mean Corpuscular Volume 90 fL (79-100) Mean Corpuscular Hemoglobin 31 pg (25-35) Mean Corpuscular Hemoglobin Concent 34 g/dL (31-37) Red Cell Distribution Width 13.8 % (11.5-14.5) Platelet Count 181 x10^3/uL (140-400) Sodium Level 144 mmol/L (136-145) Potassium Level 3.6 mmol/L (3.5-5.1) Chloride Level 106 mmol/L (98-107) Carbon Dioxide Level 23 mmol/L (21-32) Anion Gap 15 (6-14) Blood Urea Nitrogen 10 mg/dL (8-26) Creatinine 1.2 mg/dL (0.7-1.3) Estimated GFR (Cockcroft-Gault) 65.5 Glucose Level 122 mg/dL (70-99) Calcium Level 8.8 mg/dL (8.5-10.1) Magnesium Level 2.5 mg/dL (1.8-2.4) O2 Saturation 98 % (92-99) Arterial Blood pH 7.40 (7.35-7.45) Arterial Blood pCO2 at Patient Temp 32 mmHg (35-46) Arterial Blood pO2 at Patient Temp 103 mmHg (75-108) Arterial Blood HCO3 20 mmol/L (21-28) Arterial Blood Base Excess -4 mmol/L (-3-3) FiO2 40 Medications Current Medications Labetalol HCl (Normodyne Iv Push) 20 mg 1X ONCE IVP Last administered on at 15:30; Start 06/21/18 at 15:15; Stop 06/21/18 at 15:18; Status DC Metoprolol Tartrate (Lopressor Vial) 5 mg 1X ONCE IVP Last administered on at 16:05; Start 06/21/18 at 16:00; Stop 06/21/18 at 16:01; Status DC Lorazepam (Ativan) 1 mg 1X ONCE IV Last administered on 06/21/18at 16:04; Start 06/21/18 at 16:00; Stop 06/21/18 at 16:01; Status DC Sodium Chloride 500 ml @ 500 mls/hr 1X ONCE IV Last administered on at 17:03; Start 06/21/18 at 16:30; Stop 06/21/18 at 17:29; Status DC Magnesium Sulfate 50 ml @ 25 mls/hr 1X ONCE IV Last administered on 06/21/18at 16:41; Start 06/21/18 at 16:30; Stop 06/21/18 at 18:29; Status DC Lorazepam (Ativan) 2 mg 1X ONCE IV Last administered on 06/21/18at 16:41; Start 06/21/18 at 16:30; Stop 06/21/18 at 16:31; Status DC Ziprasidone (Geodon Im) 20 mg 1X ONCE IM Last administered on 06/21/18at 17:03 ; Start 06/21/18 at 17:00; Stop 06/21/18 at 17:01; Status DC Lorazepam (Ativan) 2 mg 1X ONCE IV ; Start 06/21/18 at 17:15; Stop 06/21/18 at 17:16; Status DC Succinylcholine Chloride (Anectine) 200 mg STK-MED ONCE .ROUTE ; Start 06/21/18 at 17:13; Stop 06/21/18 at 17:14; Status DC Propofol (Diprivan) 200 mg 1X ONCE IV ; Start 06/21/18 at 17:30; Stop 06/21/18 at 17:31; Status DC Ceftriaxone Sodium (Rocephin) 2 gm 1X ONCE IVP Last administered on 06/21/18at 17:39; Start 06/21/18 at 17:30; Stop 06/21/18 at 17:31; Status DC Sodium Chloride 1,000 ml @ 1,000 mls/hr 1X ONCE IV Last administered on at 17:32; Start 06/21/18 at 17:30; Stop 06/21/18 at 18:29; Status DC Propofol 20 ml @ As Directed STK-MED ONCE IV ; Start 06/21/18 at 17:24; Stop at 17:25; Status DC Propofol 50 ml @ As Directed STK-MED ONCE IV ; Start 06/21/18 at 17:26; Stop at 17:27; Status DC Etomidate (Amidate) 20 mg STK-MED ONCE IV ; Start 06/21/18 at 17:28; Stop at 17:29; Status DC Sodium Chloride 1,000 ml @ 1,000 mls/hr 1X ONCE IV Last administered on at 19:31; Start 06/21/18 at 17:30; Stop 06/21/18 at 18:29; Status DC Vancomycin HCl (Vanco Per Pharmacy) 1 each PRN DAILY PRN MC SEE COMMENTS Last administered on 06/21/18at 20:33; Start 06/21/18 at 17:30; Stop 06/22/18 at 14:14 ; Status DC Vancomycin HCl 2 gm/Sodium Chloride 500 ml @ 250 mls/hr 1X ONCE IV Last administered on 06/21/18at 19:31; Start 06/21/18 at 18:00; Stop 06/21/18 at 19:59 ; Status DC Ondansetron HCl (Zofran) 4 mg PRN Q8HRS PRN IV NAUSEA/VOMITING; Start 06/21/18 at 17:45; Stop 06/22/18 at 17:44 Sodium Chloride 1,000 ml @ 100 mls/hr Q10H IV Last administered on 06/22/18at 03:03; Start 06/21/18 at 17:38; Stop 06/22/18 at 17:37 Acetaminophen (Tylenol Supp) 650 mg 1X ONCE LA Last administered on 06/21/18at 17:57; Start 06/21/18 at 17:45; Stop 06/21/18 at 17:46; Status DC Midazolam HCl 100 ml @ 1 mls/hr 1X ONCE IV Last administered on 06/21/18at 17: 57; Start 06/21/18 at 18:00; Stop 06/25/18 at 21:59 Midazolam HCl (Versed) 5 mg STK-MED ONCE .ROUTE ; Start 06/21/18 at 17:47; Stop 06/21/18 at 17:48; Status DC Propofol 100 ml @ As Directed STK-MED ONCE IV ; Start 06/21/18 at 18:07; Stop 06/21/18 at 18:08; Status DC Rocuronium [place] (Zemuron) 50 mg STK-MED ONCE .ROUTE ; Start 06/21/18 at 18:11 ; Stop 06/21/18 at 18:12; Status DC Enoxaparin Sodium (Lovenox Per Pharmacy Prophylaxis Dosing) 1 each PRN DAILY PRN MC SEE COMMENTS; Start 06/21/18 at 19:45 Enoxaparin Sodium (Lovenox 40mg Syringe) 40 mg QHS SQ Last administered on 06/21at 21:05; Start 06/21/18 at 21:00 Vancomycin HCl 1.75 gm/Sodium Chloride 500 ml @ 250 mls/hr Q12H IV Last administered on 06/22/18at 09:39; Start 06/22/18 at 08:00; Stop 06/22/18 at 14:14 ; Status DC Vancomycin HCl (Vancomycin Trough Level) 1 each 1X ONCE MC ; Start 06/23/18 at 07:30; Stop 06/23/18 at 07:30; Status DC Midazolam HCl 100 ml @ 5 mls/hr CONT PRN IV SEE I/O RECORD; Start 06/21/18 at 21:00 Propofol 100 ml @ 0 mls/hr CONT PRN IV SEE I/O RECORD Last administered on 06/22at 03:04; Start 06/21/18 at 21:00 Propofol (Diprivan) 1,000 mg STK-MED ONCE IV ; Start 06/21/18 at 18:10; Stop at 09:01; Status DC Vitals/I & O Vital Sign - Last 24 Hours 06/21/18 06/21/18 06/21/18 06/21/18 15:00 15:30 15:45 16:05 Temp 98.2 98.2 Pulse 128 124 106 117 Resp B/P (MAP) 212/111 (144) 214/128 173/93 Pulse Ox 98 93 O2 Delivery Room Air 06/21/18 06/21/18 06/21/18 06/21/18 16:10 17:00 17:15 17:20 Temp 106.0 106.0 Pulse 118 148 120 Resp 22 Pulse Ox 94 99 96 O2 Delivery Ventilator 06/21/18 06/21/18 06/21/18 06/21/18 17:45 18:00 19:00 19:41 Temp 99.0 99.0 Pulse 162 154 126 Resp 16 16 16 B/P (MAP) 116/71 (86) Pulse Ox 93 100 97 97 O2 Delivery Ventilator Ventilator 06/21/18 06/21/18 06/21/18 06/21/18 20:00 20:00 20:06 21:00 Temp 98.5 96.8 98.5 96.8 Pulse 103 104 Resp 16 16 B/P (MAP) 114/73 (87) 112/73 (86) Pulse Ox 97 97 98 O2 Delivery Mechanical Ventilator Ventilator Ventilator Ventilator 06/21/18 06/21/18 06/21/18 06/22/18 22:00 23:00 23:36 00:00 Temp 97.0 96.5 97.0 97.0 96.5 97.0 Pulse 92 90 87 Resp 16 17 16 B/P (MAP) 109/73 (85) 113/80 (91) 117/78 (91) Pulse Ox 98 98 97 98 O2 Delivery Ventilator Ventilator Ventilator Ventilator 06/22/18 06/22/18 06/22/18 06/22/18 00:00 01:00 02:00 03:00 Temp 97.4 97.6 97.6 97.4 97.6 97.6 Pulse 85 88 87 Resp 16 16 17 B/P (MAP) 118/80 (93) 140/90 (107) 133/86 (102) Pulse Ox 97 99 99 O2 Delivery Mechanical Ventilator Ventilator Ventilator Ventilator 06/22/18 06/22/18 06/22/18 06/22/18 03:22 04:00 04:00 05:00 Temp 97.4 97.5 97.4 97.5 Pulse 88 86 Resp 17 17 B/P (MAP) 136/86 (103) 123/86 (98) Pulse Ox 99 99 99 O2 Delivery Ventilator Ventilator Mechanical Ventilator Ventilator 06/22/18 06/22/18 06/22/18 06/22/18 05:33 06:00 07:00 08:00 Temp 97.8 98.3 97.8 98.3 Pulse 85 90 87 Resp 17 18 19 B/P (MAP) 131/84 (100) 136/85 (102) 131/80 (97) Pulse Ox 99 98 98 98 O2 Delivery Ventilator Ventilator Ventilator Ventilator 06/22/18 06/22/18 06/22/18 06/22/18 08:00 08:29 09:00 09:15 Pulse 92 Resp 17 B/P (MAP) 137/87 (104) Pulse Ox 98 98 97 O2 Delivery Mechanical Ventilator Ventilator Ventilator Ventilator 06/22/18 06/22/18 06/22/18 06/22/18 10:00 11:00 11:25 12:00 Temp 98.2 98.2 Pulse 90 94 100 Resp 18 18 18 B/P (MAP) 135/87 (103) 130/86 (101) Pulse Ox 98 98 96 O2 Delivery Nasal Cannula Nasal Cannula Room Air Room Air O2 Flow Rate 2.0 2.0 06/22/18 06/22/18 12:00 13:00 Pulse 99 104 Resp 18 17 B/P (MAP) 132/71 (91) 144/80 (101) Pulse Ox 97 96 O2 Delivery Room Air Room Air Intake and Output 06/21/18 06/21/18 06/22/18 15:00 23:00 07:00 Intake Total 2579.7 ml 1639.7 ml Output Total 1050 ml 1300 ml Balance 1529.7 ml 339.7 ml MARIO ALBERTO FRIEDMAN MD Jun 22, 2018 14:28
--- NOTE | 2018-06-22 15:24 | NUR ---
SS following for discharge planning. SS reviewed pt chart. Pt has history of methamphetamine use. Pt is from home with spouse and currently on room air. PAT team consulted for evaluation and resources. SS will continue to follow for pending discharge needs.
--- NOTE | 2018-06-22 18:43 | NUR ---
Patient CPAP trial at 0910 and extubated at 1000, handley DC'd 1330 and voided 650cc 1820. Patient met with PAT team and received information related to outpatient drug rehab. Patient's VS stable, downgraded.
[2018-06-22] MEDS: ENOXAPARIN 40 MG/0.4 ML SYRINGE. SQ SCH (20:31)
[2018-06-23 03:00] VITALS: BP 153/85
[2018-06-23 07:00] VITALS: BP 138/90
[2018-06-23 08:43] LABS: VANC TR 4.4 mcg/mL (10.0-20.0)
[2018-06-23 08:47] LABS: CHOLESTEROL/HDL RATIO 5.1
--- NOTE | 2018-06-23 09:05 | PDOC ---
PULMONARY PROGRESS NOTES Vitals Vital Signs Date Time Temp Pulse Resp B/P (MAP) Pulse Ox O2 Delivery O2 Flow Rate FiO2 06/23/18 03:00 98.2 90 24 153/85 (107) 97 Room Air 98.2 06/22/18 11:00 2.0 Labs Laboratory Tests Test 06/21/18 15:09 06/21/18 16:30 06/21/18 17:22 06/21/18 17:55 White Blood Count 19.7 x10^3/uL (4.0-11.0) Red Blood Count 5.43 x10^6/uL (4.30-5.70) Hemoglobin 16.8 g/dL (13.0-17.5) Hematocrit 49.1 % (39.0-53.0) Mean Corpuscular Volume 90 fL (79-100) Mean Corpuscular Hemoglobin 31 pg (25-35) Mean Corpuscular Hemoglobin Concent 34 g/dL (31-37) Red Cell Distribution Width 13.8 % (11.5-14.5) Platelet Count 249 x10^3/uL (140-400) Neutrophils (%) (Auto) 87 % (31-73) Lymphocytes (%) (Auto) 6 % (24-48) Monocytes (%) (Auto) 6 % (0-9) Eosinophils (%) (Auto) 0 % (0-3) Basophils (%) (Auto) 0 % (0-3) Neutrophils # (Auto) 17.2 x10^3uL (1.8-7.7) Lymphocytes # (Auto) 1.2 x10^3/uL (1.0-4.8) Monocytes # (Auto) 1.2 x10^3/uL (0.0-1.1) Eosinophils # (Auto) 0.0 x10^3/uL (0.0-0.7) Basophils # (Auto) 0.1 x10^3/uL (0.0-0.2) Segmented Neutrophils % 89 % (35-66) Band Neutrophils % 2 % (0-9) Lymphocytes % 3 % (24-48) Monocytes % 6 % (0-10) Platelet Estimate Adequate (ADEQUATE) Prothrombin Time 14.3 SEC (11.7-14.0) Prothromb Time International Ratio 1.1 (0.8-1.1) Activated Partial Thromboplast Time 27 SEC (24-38) Sodium Level 138 mmol/L (136-145) Potassium Level 3.4 mmol/L (3.5-5.1) Chloride Level 99 mmol/L (98-107) Carbon Dioxide Level 24 mmol/L (21-32) Anion Gap 15 (6-14) Blood Urea Nitrogen 11 mg/dL (8-26) Creatinine 1.2 mg/dL (0.7-1.3) Estimated GFR (Cockcroft-Gault) 65.5 BUN/Creatinine Ratio 9 (6-20) Glucose Level 185 mg/dL (70-99) Calcium Level 9.6 mg/dL (8.5-10.1) Magnesium Level 1.7 mg/dL (1.8-2.4) Total Bilirubin 0.8 mg/dL (0.2-1.0) Aspartate Amino Transf (AST/SGOT) 20 U/L (15-37) Alanine Aminotransferase (ALT/SGPT) 49 U/L (16-63) Alkaline Phosphatase 83 U/L (46-116) Troponin I Quantitative 0.080 ng/mL (0.000-0.055) [id number]-Type Natriuretic Peptide 460 pg/mL (0-124) Total Protein 8.7 g/dL (6.4-8.2) Albumin 4.7 g/dL (3.4-5.0) Albumin/Globulin Ratio 1.2 (1.0-1.7) Salicylates Level < 2.8 mg/dL (2.8-20.0) Salicylate Last Dose Date Unk Salicylate Last Dose Time Unk Acetaminophen Level < 2 mcg/ml (10-30) Acetaminophen Last Dose Date Unk Acetaminophen Last Dose Time Unk Ethyl Alcohol Level < 10 mg/dL (0-10) Lactic Acid Level 5.8 mmol/L (0.4-2.0) Urine Opiates Screen Neg (NEG) Urine Methadone Screen Neg (NEG) Urine Barbiturates Neg (NEG) Urine Phencyclidine Screen Neg (NEG) Urine Amphetamine/Methamphetamine Pos (NEG) Urine Benzodiazepines Screen Neg (NEG) Urine Cocaine Screen Neg (NEG) Urine Cannabinoids Screen Neg (NEG) Urine Ethyl Alcohol Neg (NEG) O2 Saturation 99 % (92-99) Arterial Blood pH 7.24 (7.35-7.45) Arterial Blood pH (Temp corrected) 7.24 Arterial Blood pCO2 at Patient Temp 51 mmHg (35-46) Arterial Blood pCO2 (Temp correct) 51 mmHg Arterial Blood pO2 at Patient Temp 248 mmHg (75-108) Arterial Blood pO2 (Temp corrected) 248 mmHg Arterial Blood HCO3 20 mmol/L (21-28) Arterial Blood Base Excess -6 mmol/L (-3-3) FiO2 100 Test 06/21/18 18:30 06/21/18 19:56 06/21/18 20:40 06/22/18 08:00 Nasal Screen MRSA (PCR) Negative (Negative) O2 Saturation 99 % (92-99) 97 % (92-99) Arterial Blood pH 7.33 (7.35-7.45) 7.38 (7.35-7.45) Arterial Blood pCO2 at Patient Temp 37 mmHg (35-46) 34 mmHg (35-46) Arterial Blood pO2 at Patient Temp 151 mmHg (75-108) 98 mmHg (75-108) Arterial Blood HCO3 19 mmol/L (21-28) 20 mmol/L (21-28) Arterial Blood Base Excess -6 mmol/L (-3-3) -4 mmol/L (-3-3) FiO2 80 40 Lactic Acid Level 1.5 mmol/L (0.4-2.0) Test 06/22/18 08:26 06/22/18 09:45 06/23/18 08:11 White Blood Count 12.2 x10^3/uL (4.0-11.0) Red Blood Count 5.04 x10^6/uL (4.30-5.70) Hemoglobin 15.4 g/dL (13.0-17.5) Hematocrit 45.6 % (39.0-53.0) Mean Corpuscular Volume 90 fL (79-100) Mean Corpuscular Hemoglobin 31 pg (25-35) Mean Corpuscular Hemoglobin Concent 34 g/dL (31-37) Red Cell Distribution Width 13.8 % (11.5-14.5) Platelet Count 181 x10^3/uL (140-400) Sodium Level 144 mmol/L (136-145) Potassium Level 3.6 mmol/L (3.5-5.1) Chloride Level 106 mmol/L (98-107) Carbon Dioxide Level 23 mmol/L (21-32) Anion Gap 15 (6-14) Blood Urea Nitrogen 10 mg/dL (8-26) Creatinine 1.2 mg/dL (0.7-1.3) Estimated GFR (Cockcroft-Gault) 65.5 Glucose Level 122 mg/dL (70-99) Calcium Level 8.8 mg/dL (8.5-10.1) Magnesium Level 2.5 mg/dL (1.8-2.4) O2 Saturation 98 % (92-99) Arterial Blood pH 7.40 (7.35-7.45) Arterial Blood pCO2 at Patient Temp 32 mmHg (35-46) Arterial Blood pO2 at Patient Temp 103 mmHg (75-108) Arterial Blood HCO3 20 mmol/L (21-28) Arterial Blood Base Excess -4 mmol/L (-3-3) FiO2 40 Triglycerides Level 266 mg/dL (0-150) Cholesterol Level 214 mg/dL (0-200) LDL Cholesterol, Calculated 119 mg/dL (0-100) VLDL Cholesterol, Calculated 53 mg/dL (0-40) Non-HDL Cholesterol Calculated 172 mg/dL (0-129) HDL Cholesterol 42 mg/dL (40-60) Cholesterol/HDL Ratio 5.1 Vancomycin Level Trough 4.4 mcg/mL (10.0-20.0) Vancomycin Last Dose Date 06/22/18 Vancomycin Last Dose Time 1999 Laboratory Tests Test 06/22/18 09:45 06/23/18 08:11 O2 Saturation 98 % (92-99) Arterial Blood pH 7.40 (7.35-7.45) Arterial Blood pCO2 at Patient Temp 32 mmHg (35-46) Arterial Blood pO2 at Patient Temp 103 mmHg (75-108) Arterial Blood HCO3 20 mmol/L (21-28) Arterial Blood Base Excess -4 mmol/L (-3-3) FiO2 40 Triglycerides Level 266 mg/dL (0-150) Cholesterol Level 214 mg/dL (0-200) LDL Cholesterol, Calculated 119 mg/dL (0-100) VLDL Cholesterol, Calculated 53 mg/dL (0-40) Non-HDL Cholesterol Calculated 172 mg/dL (0-129) HDL Cholesterol 42 mg/dL (40-60) Cholesterol/HDL Ratio 5.1 Vancomycin Level Trough 4.4 mcg/mL (10.0-20.0) Vancomycin Last Dose Date 06/22/18 Vancomycin Last Dose Time 1999 CLARISSA MUNGUIA MD Jun 23, 2018 09:05
[2018-06-23 15:00] VITALS: BP 127/83
--- NOTE | 2018-06-23 17:15 | PDOC ---
PROGRESS NOTES Assessment Assessment Hypertensive emergency, BP 224/128 mmHg. Hypertensive encephalopathy. Toxic encephalopathy (amphetamine).. Respiratory failure. Pulmonary infiltrate? Blurred vision. Dizziness. Lactic acidosis. Leukocytosis. HTN. Amphetamine positive. Obesity. RECOMMENDATIONS/PLAN: BP control. Brain MRI w/o contrast. Treat medical diseases. Discussed with his again at bedside on 06/23/18. HISTORY OF THE PRESENT ILLNESS: 43-y-old male patient with Hx of HTN and obesity had episodes of accelerated BP in the past at young age. He has not had treatment for HTN for many years, and he last checked his BP was about 2-3 years ago. He had some drinking with methamphetamine in it on 06/21/18 and he then suddenly had mental status changes, blurred vision, dizziness, light headiness to be brought to the ER of [facility]. His BP was high. He felt better on 06/22/18, but stated he had increased symptoms of dizziness and unsteadiness on 06/23/18. Past Medical History Cardiovascular: HTN. Pulmonary: No pertinent hx GI: No pertinent hx Family History Non contributory. PAST SURGERY HISTORY: No major surgery recently. ALLERGY: Unknown MEDICATIONS: Refer to [facility] SOCIAL HISTORY: Lives with his at home. Smoke: 1-2 pack years (chew)Lives in care home. He drinks occasionally. Amphetamine positive this time. REVIEW OF SYSTEMS: Constitutional:Obesity. Head: No recent traumatic brain or head injury. Skin: No edema, or rash. Ear: No infection. Eyes: No vision loss or color blindness. Nose: No bleeding or purulent discharges. Hearing: No hearing decrease. Neck: No injury. Cardiac: HTN. Pulmonary: No COPD. GI: No GI ulcer, GI bleeding. Urinary/genital: No dysuria, incontinence, urinary retention. Endocrinologic: Obesity. Skeletomuscular: No muscular atrophy, deformity. Neurological: see HP. Psychiatric: Tobacco use. Otherwise, not [id number] review of systems. PHYSICAL EXAMINATION: General appearance is in subacute distress. HEENT: Normocephalic and nontraumatic. Eyes, nose, ears, and throat are unremarkable. Neck is supple. No lymphadenopathy. No crepitus. Cardiovascular: S1, S2, regular rate and rhythm. Pulmonary: Clear to auscultation bilaterally. Abdomen: Bowel sounds are positive. Abdomen is soft, nontender, and nondistended. Extremities: No rash, lesions, or edema. No restriction of range of motion NEUROLOGICAL EXAMINATION: Awake. On room air. Oriented to time, place and person. PERRL. EOMI. CN: no focal findings. Muscle tone: within normal. Muscle strength: 5 DTR: 2+ Plantar reflex: Flexor response bilaterally Gait: not examined in bed. Sensory exam: no abnormal findings. No cerebellar signs elicited. F-T-N test fine. Objective Objective Vital Signs Date Time Temp Pulse Resp B/P (MAP) Pulse Ox O2 Delivery O2 Flow Rate FiO2 06/23/18 15:00 98.2 81 18 127/83 (98) 98 Room Air 98.2 06/22/18 11:00 2.0 Intake and Output 06/23/18 06:59 Intake Total 2090 ml Output Total 1750 ml Balance 340 ml Intake Oral 1590 ml IV Total 500 ml Output Urine Total 1750 ml # Voids 1 Vitals Signs Vitals VS - Last 72 Hours, by Label Date Time Temp Pulse Resp B/P (MAP) Pulse Ox O2 Delivery O2 Flow Rate FiO2 06/23/18 15:00 98.2 81 18 127/83 (98) 98 Room Air 98.2 06/23/18 08:00 Room Air 06/23/18 07:00 97.6 83 20 138/90 (106) 97 Room Air 97.6 06/23/18 03:00 98.2 90 24 153/85 (107) 97 Room Air 98.2 06/22/18 23:00 98.5 90 24 139/80 (99) 97 Room Air 98.5 06/22/18 20:00 Room Air 06/22/18 19:00 98.3 94 16 159/76 (103) 95 Room Air 98.3 06/22/18 15:06 98.2 89 18 134/81 (98) 96 Room Air 98.2 06/22/18 14:00 101 18 142/88 (106) 96 Room Air 06/22/18 13:00 104 17 144/80 (101) 96 Room Air 06/22/18 12:00 99 18 132/71 (91) 97 Room Air 06/22/18 12:00 Room Air 06/22/18 11:25 100 18 96 Room Air 06/22/18 11:00 98.2 94 18 130/86 (101) 98 Nasal Cannula 2.0 98.2 06/22/18 10:00 90 18 135/87 (103) 98 Nasal Cannula 2.0 06/22/18 09:15 97 Ventilator 06/22/18 09:00 92 17 137/87 (104) 98 Ventilator 06/22/18 08:29 98 Ventilator 06/22/18 08:00 Mechanical Ventilator 06/22/18 08:00 87 19 131/80 (97) 98 Ventilator 06/22/18 07:00 98.3 90 18 136/85 (102) 98 Ventilator 98.3 Laboratory Laboratory Laboratory Tests Test 06/23/18 08:11 Triglycerides Level 266 mg/dL (0-150) Cholesterol Level 214 mg/dL (0-200) LDL Cholesterol, Calculated 119 mg/dL (0-100) VLDL Cholesterol, Calculated 53 mg/dL (0-40) Non-HDL Cholesterol Calculated 172 mg/dL (0-129) HDL Cholesterol 42 mg/dL (40-60) Cholesterol/HDL Ratio 5.1 Vancomycin Level Trough 4.4 mcg/mL (10.0-20.0) Vancomycin Last Dose Date 06/22/18 Vancomycin Last Dose Time 1999 Microbiology 06/21/18 Blood Culture - Preliminary, Resulted NO GROWTH AFTER 1 DAY Medication Medications Current Medications Lorazepam (Ativan) 2 mg PRN Q4HRS PRN IV ANXIETY / AGITATION Last administered on 06/23/18at 08:12; Start 06/23/18 at 08:15 Vancomycin HCl (Vancomycin Trough Level) 1 each 1X ONCE MC ; Start 06/23/18 at 07:30; Stop 06/23/18 at 07:30; Status DC Comment Review of Relevant I have reviewed the following items richelle (where applicable) has been applied. KIMMY CALDERÓN MD Jun 23, 2018 17:15
[2018-06-23 19:00] VITALS: BP 152/106
--- NOTE | 2018-06-23 20:19 | PDOC ---
PROGRESS NOTES Chief Complaint Chief Complaint Acute hypercapnic respiratory failure secondary to acute intoxication of meth/ toxic encephalopathy. Acute toxic encephalopathy with abnormal behavior related to meth overdose. Hypertensive urgency related to meth overdose. Leukocytosis most likely reactive due to substance abuse and acute illness mildly elevation of troponin which is most likely demand ischemia nstemi type 2 severe dehydration secondary to substance abuse. Plan: ativan prn for agitation neurology evaluation greatly appreciated reassess in the am labs in am hopefully discharge soon; may be transferred out of the ICU History of Present Illness History of Present Illness Patient somewhat agitated during my encounter. The patient seems to cry easily, the patient is complaining of some chest pressure and shortness of breath. This seems to be related to his anxiety as a side effect of his recent substance abuse. No history of seizure disorder throughout the night no acute events reported overnight discussed with nursing staff all of his concerns were addressed to the best of my abilities Vitals Vitals Vital Signs Date Time Temp Pulse Resp B/P (MAP) Pulse Ox O2 Delivery O2 Flow Rate FiO2 06/23/18 19:53 Room Air 06/23/18 15:00 98.2 81 18 127/83 (98) 98 98.2 06/22/18 11:00 2.0 Physical Exam General: mild distress (sedated) Extremities: No cyanosis, No edema, Normal pulses Skin: No rashes, No significant lesion, Other (arm tattoos) Labs LABS Laboratory Tests Test 06/23/18 08:11 Triglycerides Level 266 mg/dL (0-150) Cholesterol Level 214 mg/dL (0-200) LDL Cholesterol, Calculated 119 mg/dL (0-100) VLDL Cholesterol, Calculated 53 mg/dL (0-40) Non-HDL Cholesterol Calculated 172 mg/dL (0-129) HDL Cholesterol 42 mg/dL (40-60) Cholesterol/HDL Ratio 5.1 Vancomycin Level Trough 4.4 mcg/mL (10.0-20.0) Vancomycin Last Dose Date 06/22/18 Vancomycin Last Dose Time 1999 Review of Systems Review of Systems Pertinent as per history of present illness otherwise 14 point review of system is negative Assessment and Plan Assessmemt and Plan Problems Medical Problems: (1) Encephalopathy acute Status: Acute (2) Hypertension Status: Acute (3) Substance abuse Status: Acute Comment Review of Relevant I have reviewed the following items richelle (where applicable) has been applied. Labs Laboratory Tests Test 06/21/18 20:40 06/22/18 08:00 06/22/18 08:26 06/22/18 09:45 Lactic Acid Level 1.5 mmol/L (0.4-2.0) O2 Saturation 97 % (92-99) 98 % (92-99) Arterial Blood pH 7.38 (7.35-7.45) 7.40 (7.35-7.45) Arterial Blood pCO2 at Patient Temp 34 mmHg (35-46) 32 mmHg (35-46) Arterial Blood pO2 at Patient Temp 98 mmHg (75-108) 103 mmHg (75-108) Arterial Blood HCO3 20 mmol/L (21-28) 20 mmol/L (21-28) Arterial Blood Base Excess -4 mmol/L (-3-3) -4 mmol/L (-3-3) FiO2 40 40 White Blood Count 12.2 x10^3/uL (4.0-11.0) Red Blood Count 5.04 x10^6/uL (4.30-5.70) Hemoglobin 15.4 g/dL (13.0-17.5) Hematocrit 45.6 % (39.0-53.0) Mean Corpuscular Volume 90 fL (79-100) Mean Corpuscular Hemoglobin 31 pg (25-35) Mean Corpuscular Hemoglobin Concent 34 g/dL (31-37) Red Cell Distribution Width 13.8 % (11.5-14.5) Platelet Count 181 x10^3/uL (140-400) Sodium Level 144 mmol/L (136-145) Potassium Level 3.6 mmol/L (3.5-5.1) Chloride Level 106 mmol/L (98-107) Carbon Dioxide Level 23 mmol/L (21-32) Anion Gap 15 (6-14) Blood Urea Nitrogen 10 mg/dL (8-26) Creatinine 1.2 mg/dL (0.7-1.3) Estimated GFR (Cockcroft-Gault) 65.5 Glucose Level 122 mg/dL (70-99) Calcium Level 8.8 mg/dL (8.5-10.1) Magnesium Level 2.5 mg/dL (1.8-2.4) Test 06/23/18 08:11 Triglycerides Level 266 mg/dL (0-150) Cholesterol Level 214 mg/dL (0-200) LDL Cholesterol, Calculated 119 mg/dL (0-100) VLDL Cholesterol, Calculated 53 mg/dL (0-40) Non-HDL Cholesterol Calculated 172 mg/dL (0-129) HDL Cholesterol 42 mg/dL (40-60) Cholesterol/HDL Ratio 5.1 Vancomycin Level Trough 4.4 mcg/mL (10.0-20.0) Vancomycin Last Dose Date 06/22/18 Vancomycin Last Dose Time 1999 Laboratory Tests Test 06/23/18 08:11 Triglycerides Level 266 mg/dL (0-150) Cholesterol Level 214 mg/dL (0-200) LDL Cholesterol, Calculated 119 mg/dL (0-100) VLDL Cholesterol, Calculated 53 mg/dL (0-40) Non-HDL Cholesterol Calculated 172 mg/dL (0-129) HDL Cholesterol 42 mg/dL (40-60) Cholesterol/HDL Ratio 5.1 Vancomycin Level Trough 4.4 mcg/mL (10.0-20.0) Vancomycin Last Dose Date 06/22/18 Vancomycin Last Dose Time 1999 Microbiology 06/21/18 Blood Culture - Preliminary, Resulted NO GROWTH AFTER 1 DAY Medications Current Medications Labetalol HCl (Normodyne Iv Push) 20 mg 1X ONCE IVP Last administered on at 15:30; Start 06/21/18 at 15:15; Stop 06/21/18 at 15:18; Status DC Metoprolol Tartrate (Lopressor Vial) 5 mg 1X ONCE IVP Last administered on at 16:05; Start 06/21/18 at 16:00; Stop 06/21/18 at 16:01; Status DC Lorazepam (Ativan) 1 mg 1X ONCE IV Last administered on 06/21/18at 16:04; Start 06/21/18 at 16:00; Stop 06/21/18 at 16:01; Status DC Sodium Chloride 500 ml @ 500 mls/hr 1X ONCE IV Last administered on at 17:03; Start 06/21/18 at 16:30; Stop 06/21/18 at 17:29; Status DC Magnesium Sulfate 50 ml @ 25 mls/hr 1X ONCE IV Last administered on 06/21/18at 16:41; Start 06/21/18 at 16:30; Stop 06/21/18 at 18:29; Status DC Lorazepam (Ativan) 2 mg 1X ONCE IV Last administered on 06/21/18at 16:41; Start 06/21/18 at 16:30; Stop 06/21/18 at 16:31; Status DC Ziprasidone (Geodon Im) 20 mg 1X ONCE IM Last administered on 06/21/18at 17:03 ; Start 06/21/18 at 17:00; Stop 06/21/18 at 17:01; Status DC Lorazepam (Ativan) 2 mg 1X ONCE IV ; Start 06/21/18 at 17:15; Stop 06/21/18 at 17:16; Status DC Succinylcholine Chloride (Anectine) 200 mg STK-MED ONCE .ROUTE ; Start 06/21/18 at 17:13; Stop 06/21/18 at 17:14; Status DC Propofol (Diprivan) 200 mg 1X ONCE IV ; Start 06/21/18 at 17:30; Stop 06/21/18 at 17:31; Status DC Ceftriaxone Sodium (Rocephin) 2 gm 1X ONCE IVP Last administered on 06/21/18at 17:39; Start 06/21/18 at 17:30; Stop 06/21/18 at 17:31; Status DC Sodium Chloride 1,000 ml @ 1,000 mls/hr 1X ONCE IV Last administered on at 17:32; Start 06/21/18 at 17:30; Stop 06/21/18 at 18:29; Status DC Propofol 20 ml @ As Directed STK-MED ONCE IV ; Start 06/21/18 at 17:24; Stop at 17:25; Status DC Propofol 50 ml @ As Directed STK-MED ONCE IV ; Start 06/21/18 at 17:26; Stop at 17:27; Status DC Etomidate (Amidate) 20 mg STK-MED ONCE IV ; Start 06/21/18 at 17:28; Stop at 17:29; Status DC Sodium Chloride 1,000 ml @ 1,000 mls/hr 1X ONCE IV Last administered on at 19:31; Start 06/21/18 at 17:30; Stop 06/21/18 at 18:29; Status DC Vancomycin HCl (Vanco Per Pharmacy) 1 each PRN DAILY PRN MC SEE COMMENTS Last administered on 06/21/18at 20:33; Start 06/21/18 at 17:30; Stop 06/22/18 at 14:14 ; Status DC Vancomycin HCl 2 gm/Sodium Chloride 500 ml @ 250 mls/hr 1X ONCE IV Last administered on 06/21/18at 19:31; Start 06/21/18 at 18:00; Stop 06/21/18 at 19:59 ; Status DC Ondansetron HCl (Zofran) 4 mg PRN Q8HRS PRN IV NAUSEA/VOMITING; Start 06/21/18 at 17:45; Stop 06/22/18 at 17:44; Status DC Sodium Chloride 1,000 ml @ 100 mls/hr Q10H IV Last administered on 06/22/18at 03:03; Start 06/21/18 at 17:38; Stop 06/22/18 at 17:37; Status DC Acetaminophen (Tylenol Supp) 650 mg 1X ONCE VT Last administered on 06/21/18at 17:57; Start 06/21/18 at 17:45; Stop 06/21/18 at 17:46; Status DC Midazolam HCl 100 ml @ 1 mls/hr 1X ONCE IV Last administered on 06/21/18at 17: 57; Start 06/21/18 at 18:00; Stop 06/23/18 at 08:24; Status DC Midazolam HCl (Versed) 5 mg STK-MED ONCE .ROUTE ; Start 06/21/18 at 17:47; Stop 06/21/18 at 17:48; Status DC Propofol 100 ml @ As Directed STK-MED ONCE IV ; Start 06/21/18 at 18:07; Stop 06/21/18 at 18:08; Status DC Rocuronium [place] (Zemuron) 50 mg STK-MED ONCE .ROUTE ; Start 06/21/18 at 18:11 ; Stop 06/21/18 at 18:12; Status DC Enoxaparin Sodium (Lovenox Per Pharmacy Prophylaxis Dosing) 1 each PRN DAILY PRN MC SEE COMMENTS; Start 06/21/18 at 19:45 Enoxaparin Sodium (Lovenox 40mg Syringe) 40 mg QHS SQ Last administered on 06/22at 20:31; Start 06/21/18 at 21:00 Vancomycin HCl 1.75 gm/Sodium Chloride 500 ml @ 250 mls/hr Q12H IV Last administered on 06/22/18at 09:39; Start 06/22/18 at 08:00; Stop 06/22/18 at 14:14 ; Status DC Vancomycin HCl (Vancomycin Trough Level) 1 each 1X ONCE MC ; Start 06/23/18 at 07:30; Stop 06/23/18 at 07:30; Status DC Midazolam HCl 100 ml @ 5 mls/hr CONT PRN IV SEE I/O RECORD; Start 06/21/18 at 21:00; Stop 06/23/18 at 10:18; Status DC Propofol 100 ml @ 0 mls/hr CONT PRN IV SEE I/O RECORD Last administered on 06/22at 03:04; Start 06/21/18 at 21:00; Stop 06/23/18 at 10:18; Status DC Propofol (Diprivan) 1,000 mg STK-MED ONCE IV ; Start 06/21/18 at 18:10; Stop at 09:01; Status DC Lorazepam (Ativan) 2 mg PRN Q4HRS PRN IV ANXIETY / AGITATION Last administered on 06/23/18at 08:12; Start 06/23/18 at 08:15 Succinylcholine Chloride (Anectine) 200 mg STK-MED ONCE .ROUTE ; Start 06/21/18 at 12:00; Stop 06/23/18 at 08:27; Status DC Atorvastatin Calcium (Lipitor) 20 mg QHS PO ; Start 06/23/18 at 21:00 Aspirin (Children'S Aspirin) 162 mg DAILYWBKFT PO ; Start 06/24/18 at 08:00 Vitals/I & O Vital Sign - Last 24 Hours 06/22/18 06/23/18 06/23/18 06/23/18 23:00 03:00 07:00 08:00 Temp 98.5 98.2 97.6 98.5 98.2 97.6 Pulse 90 90 83 Resp 24 24 20 B/P (MAP) 139/80 (99) 153/85 (107) 138/90 (106) Pulse Ox 97 97 97 O2 Delivery Room Air Room Air Room Air Room Air 06/23/18 06/23/18 15:00 19:53 Temp 98.2 98.2 Pulse 81 Resp 18 B/P (MAP) 127/83 (98) Pulse Ox 98 O2 Delivery Room Air Room Air Intake and Output 06/22/18 06/22/18 06/23/18 15:00 23:00 07:00 Intake Total 1240 ml 200 ml 650 ml Output Total 800 ml 650 ml Balance 440 ml -450 ml 650 ml MARIO ALBERTO FRIEDMAN MD Jun 23, 2018 20:19
[2018-06-23] MEDS ORDERED: amLODIPine BESYLATE 5 MG TABLET PO ONE (20:30)
[2018-06-23] MEDS ORDERED: ATORVASTATIN CALCIUM 20 MG TABLET PO SCH (21:00)
[2018-06-23] MEDS: ENOXAPARIN 40 MG/0.4 ML SYRINGE. SQ SCH (21:00)
[2018-06-23 23:00] VITALS: BP 147/88
[2018-06-24 03:00] VITALS: BP 139/89
[2018-06-24 06:46] LABS: BASO # 0.1 x10^3/uL (0.0-0.2); BASO % 1 % (0-3); EOS % 0 % (0-3); HEMATOCRIT 50.1 % (39.0-53.0); HEMOGLOBIN 16.9 g/dL (13.0-17.5); LYMPH # 2.2 x10^3/uL (1.0-4.8); LYMPH % 20 % (24-48); MEAN CORPUSCULAR HEMOGLOBIN 30 pg (25-35); MEAN CORPUSCULAR HGB CONC 34 g/dL (31-37); MEAN CORPUSCULAR VOLUME 91 fL (79-100); MONO # 0.8 x10^3/uL (0.0-1.1); MONO % 7 % (0-9); NEUT # 7.9 x10^3uL (1.8-7.7); NEUT % 72 % (31-73); PLATELET COUNT 230 x10^3/uL (140-400); RED BLOOD COUNT 5.54 x10^6/uL (4.30-5.70); RED CELL DISTRIBUTION WIDTH 13.5 % (11.5-14.5)
[2018-06-24 07:14] LABS: CALCIUM 9.8 mg/dL (8.5-10.1); CREATININE 1.1 mg/dL (0.7-1.3); GFR 72.4; POTASSIUM 3.2 mmol/L (3.5-5.1)
[2018-06-24 07:15] VITALS: BP 143/90
[2018-06-24] MEDS ORDERED: ASPIRIN CHEWABLE 81 MG TABLET. PO SCH (08:00)
--- NOTE | 2018-06-24 09:49 | PDOC ---
PULMONARY PROGRESS NOTES Vitals Vital Signs Date Time Temp Pulse Resp B/P (MAP) Pulse Ox O2 Delivery O2 Flow Rate FiO2 06/24/18 07:15 98.2 81 20 143/90 (107) 96 Room Air 98.2 Labs Laboratory Tests Test 06/23/18 08:11 06/24/18 06:00 Triglycerides Level 266 mg/dL (0-150) Cholesterol Level 214 mg/dL (0-200) LDL Cholesterol, Calculated 119 mg/dL (0-100) VLDL Cholesterol, Calculated 53 mg/dL (0-40) Non-HDL Cholesterol Calculated 172 mg/dL (0-129) HDL Cholesterol 42 mg/dL (40-60) Cholesterol/HDL Ratio 5.1 Vancomycin Level Trough 4.4 mcg/mL (10.0-20.0) Vancomycin Last Dose Date 06/22/18 Vancomycin Last Dose Time 1999 White Blood Count 11.0 x10^3/uL (4.0-11.0) Red Blood Count 5.54 x10^6/uL (4.30-5.70) Hemoglobin 16.9 g/dL (13.0-17.5) Hematocrit 50.1 % (39.0-53.0) Mean Corpuscular Volume 91 fL (79-100) Mean Corpuscular Hemoglobin 30 pg (25-35) Mean Corpuscular Hemoglobin Concent 34 g/dL (31-37) Red Cell Distribution Width 13.5 % (11.5-14.5) Platelet Count 230 x10^3/uL (140-400) Neutrophils (%) (Auto) 72 % (31-73) Lymphocytes (%) (Auto) 20 % (24-48) Monocytes (%) (Auto) 7 % (0-9) Eosinophils (%) (Auto) 0 % (0-3) Basophils (%) (Auto) 1 % (0-3) Neutrophils # (Auto) 7.9 x10^3uL (1.8-7.7) Lymphocytes # (Auto) 2.2 x10^3/uL (1.0-4.8) Monocytes # (Auto) 0.8 x10^3/uL (0.0-1.1) Eosinophils # (Auto) 0.0 x10^3/uL (0.0-0.7) Basophils # (Auto) 0.1 x10^3/uL (0.0-0.2) Sodium Level 139 mmol/L (136-145) Potassium Level 3.2 mmol/L (3.5-5.1) Chloride Level 99 mmol/L (98-107) Carbon Dioxide Level 26 mmol/L (21-32) Anion Gap 14 (6-14) Blood Urea Nitrogen 12 mg/dL (8-26) Creatinine 1.1 mg/dL (0.7-1.3) Estimated GFR (Cockcroft-Gault) 72.4 Glucose Level 108 mg/dL (70-99) Calcium Level 9.8 mg/dL (8.5-10.1) Laboratory Tests Test 06/24/18 06:00 White Blood Count 11.0 x10^3/uL (4.0-11.0) Red Blood Count 5.54 x10^6/uL (4.30-5.70) Hemoglobin 16.9 g/dL (13.0-17.5) Hematocrit 50.1 % (39.0-53.0) Mean Corpuscular Volume 91 fL (79-100) Mean Corpuscular Hemoglobin 30 pg (25-35) Mean Corpuscular Hemoglobin Concent 34 g/dL (31-37) Red Cell Distribution Width 13.5 % (11.5-14.5) Platelet Count 230 x10^3/uL (140-400) Neutrophils (%) (Auto) 72 % (31-73) Lymphocytes (%) (Auto) 20 % (24-48) Monocytes (%) (Auto) 7 % (0-9) Eosinophils (%) (Auto) 0 % (0-3) Basophils (%) (Auto) 1 % (0-3) Neutrophils # (Auto) 7.9 x10^3uL (1.8-7.7) Lymphocytes # (Auto) 2.2 x10^3/uL (1.0-4.8) Monocytes # (Auto) 0.8 x10^3/uL (0.0-1.1) Eosinophils # (Auto) 0.0 x10^3/uL (0.0-0.7) Basophils # (Auto) 0.1 x10^3/uL (0.0-0.2) Sodium Level 139 mmol/L (136-145) Potassium Level 3.2 mmol/L (3.5-5.1) Chloride Level 99 mmol/L (98-107) Carbon Dioxide Level 26 mmol/L (21-32) Anion Gap 14 (6-14) Blood Urea Nitrogen 12 mg/dL (8-26) Creatinine 1.1 mg/dL (0.7-1.3) Estimated GFR (Cockcroft-Gault) 72.4 Glucose Level 108 mg/dL (70-99) Calcium Level 9.8 mg/dL (8.5-10.1) CLARISSA MUNGUIA MD Jun 24, 2018 09:49
[2018-06-24 10:54] VITALS: BP 140/82
--- NOTE | 2018-06-24 11:26 | NUR ---
SW following, discussed with RN. RN advised pt has an MRI this morning, and anticipates pt will discharge home with and self care if MRI comes back clear. EDGAR will continue to follow.
--- NOTE | 2018-06-24 12:19 | RAD ---
MRI Brain without contrast History: Dizziness Technique: Multiplanar, multisequential noncontrast MR imaging was performed of the brain. Comparison: None Findings: There is some motion degradation. There is no evidence of recent infarct or cytotoxic edema. The ventricles, sulci, and cisterns are within normal limits in size and configuration. There is no significant midline shift, intraaxial mass effect, or focal abnormal extra-axial fluid collection. Motion limits accurate characterization for subtle parenchymal signal abnormality, some small foci of FLAIR hypertense signal of the bilateral centrum semiovale believed to be artifactual as not confirmed on T2 sequence, no convincing signal abnormality reproducible on various image sequences. There is no convincing hemosiderin deposition of the brain parenchyma, also limited gradient echo sequence due to motion. There is preservation of the major intracranial flow-voids at the skull base. There are some tiny foci of fluid signal intensity of the mastoid air cells bilaterally.The cerebellar tonsils are normal in location. There is no significant abnormality of the pineal gland or pituitary gland. Paranasal sinuses are overall aerated. There is preserved marrow signal of the clivus. Impression: 1. Exam is degraded by motion, no convincing significant intracranial abnormality. Electronically signed by: Warren Camacho MD (06/24/2018 12:16 PM) [id number]
--- NOTE | 2018-06-24 14:53 | NUR ---
Discharge Note: ABY SORENSON Discharge instructions and discharge home medications reviewed with Patient and a copy given. All questions have been answered and understanding verbalized. The following instructions and handouts were given: contact info for [facility]. f/u PCP w/in 1-2 weeks. Discontinued lines and drains: peripheral IV dc'd intact Patient discharged to home w/ family via private vehicle
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
== END 2018-06-24 14:55 | disposition home or self-care (01) | DRG 917 ==
LOC: ER 14:46 → 1 WEST ICU 17:52 → 5 SOUTH 06-23 10:02
PROVIDERS: ADMIT Internal Medicine; ATTEND Internal Medicine
PROC: 0BH17EZ Insertion of Endotracheal Airway into Trachea, Via Natural or Artificial Opening (ICD-10-PCS; principal; 2018-06-21)
PROC: 5A1935Z Respiratory Ventilation, Less than 24 Consecutive Hours (ICD-10-PCS; 2018-06-21)
DX: T43.621A Poisoning by amphetamines, accidental (unintentional), initial encounter (principal); G92 Toxic encephalopathy; J96.02 Acute respiratory failure with hypercapnia; I16.1 Hypertensive emergency; R65.10 Systemic inflammatory response syndrome (SIRS) of non-infectious origin without acute organ dysfunction; I67.4 Hypertensive encephalopathy; R79.89 Other specified abnormal findings of blood chemistry; F15.129 Other stimulant abuse with intoxication, unspecified; D72.829 Elevated white blood cell count, unspecified; E66.9 Obesity, unspecified; E86.0 Dehydration; I10 Essential (primary) hypertension; F41.9 Anxiety disorder, unspecified; Z68.32 Body mass index [BMI] 32.0-32.9, adult; Z72.0 Tobacco use; Z98.52 Vasectomy status; Z79.899 Other long term (current) drug therapy; Z88.0 Allergy status to penicillin; Z88.8 Allergy status to other drugs, medicaments and biological substances; Y92.89 Other specified places as the place of occurrence of the external cause
CPT/HCPCS: 31500; 36415; 36600; 51702; 70450; 70551; 71045; 80048; 80053; 80061; 80202; 80307; 80329; 82805; 83605; 83735; 83880; 84484; 85007; 85025; 85027; 85610; 85730; 87040; 87641; 93005; 94002; 94003; 96361; 96365; 96366; 96372; 96375; 96376; G0480; J0330; J0696; J1650; J2060; J2250; J2704; J3370; J3475; J3486; J3490; J7030; J7040; 99285-25